=== PATIENT | male | born 1970 | race Caucasian/White ===

== ENCOUNTER 2016-09-25 10:52 | Emergency (ER) | payer OTHER ==
[2016-09-25 10:58] VITALS: BP 127/71; PULSE 59; RESP 18; TEMP 97.1
[2016-09-25] MEDS ORDERED: valACYclovir 500 MG TAB PO STA (11:08)
[2016-09-25] MEDS ORDERED: predniSONE 20 MG TAB PO STA (11:08)
--- NOTE | 2016-09-25 11:11 | ED ---
General Adult HPI - General Chief complaint: Neuro Symptoms/Deficit Stated complaint: face drooping Time Seen by Provider: 09/25/16 11:00 Source: patient, family, RN notes reviewed, old records reviewed Mode of arrival: wheelchair Limitations: physical limitation - History of Present Illness Initial comments: This is a 45-year-old male here for evaluation of right-sided facial droop. Right-sided facial numbness. Patient states symptoms started 2 days ago, have progressively worsened mildly. Patient did also cannot move his forehead. Denies any vision changes, denies any other neurological deficit. No history of heart disease, no history of stroke. No high blood pressure no high questionable no diabetes. No other travel history or sick contacts, no ear pain , no fevers - Related Data Home Medications Medication Instructions Recorded Confirmed Cyclobenzaprine [Flexeril] 10 mg PO TID PRN 12/17/13 09/28/14 Gabapentin [Neurontin] 300 mg PO TID 12/17/13 09/28/14 oxyCODONE-APAP 5-325MG [Percocet 10 mg PO Q6H PRN 12/17/13 09/28/14 5-325 mg] Previous Rx's Medication Instructions Recorded predniSONE 50 mg PO DAILY #5 tab 09/25/16 valACYclovir HCL [Valtrex] 1,000 mg PO Q8HR #21 tab 09/25/16 Allergies Allergy/AdvReac Type Severity Reaction Status Date / Time dark chocolate Allergy Nausea & Uncoded 09/28/14 09:04 Vomiting & Diarrhea Review of Systems ROS Statement: Those systems with pertinent positive or pertinent negative responses have been documented in the HPI. ROS Other: All systems not noted in ROS Statement are negative. Past Medical History Past Medical History: Asthma, Musculoskeletal Disorder Additional Past Medical History / Comment(s): ASTHMA CHILD, SEASONAL ALLERGIES, MIGRAINES History of Any Multi-Drug Resistant Organisms: None Reported Past Surgical History: Back Surgery Additional Past Surgical History / Comment(s): BACK SX X2 AND ALSO NECK FUSION Past Anesthesia/Blood Transfusion Reactions: No Reported Reaction Past Psychological History: No Psychological Hx Reported Smoking Status: Current every day smoker Past Alcohol Use History: None Reported Past Drug Use History: None Reported General Exam - General Exam Comments Initial Comments: Right-sided facial droop, inability to close right eye, inability to move right side of forehead Limitations: physical limitation General appearance: alert, in no apparent distress Head exam: Present: atraumatic, normocephalic, normal inspection Eye exam: Present: normal appearance, PERRL, EOMI. Absent: scleral icterus, conjunctival injection, periorbital swelling ENT exam: Present: normal exam, mucous membranes moist Neck exam: Present: normal inspection. Absent: tenderness, meningismus, lymphadenopathy Respiratory exam: Present: normal lung sounds bilaterally. Absent: respiratory distress, wheezes, rales, rhonchi, stridor Cardiovascular Exam: Present: regular rate, normal rhythm, normal heart sounds. Absent: systolic murmur, diastolic murmur, rubs, gallop, clicks GI/Abdominal exam: Present: soft, normal bowel sounds. Absent: distended, tenderness, guarding, rebound, rigid Extremities exam: Present: normal inspection, full ROM, normal capillary refill. Absent: tenderness, pedal edema, joint swelling, calf tenderness Back exam: Present: normal inspection Neurological exam: Present: alert, oriented X3, CN II-XII intact Psychiatric exam: Present: normal affect, normal mood Skin exam: Present: warm, dry, intact, normal color. Absent: rash Course Vital Signs 09/25/16 10:53 Temperature 97.1 F L Pulse Rate 59 L Respiratory 18 Rate Blood Pressure 127/71 O2 Sat by Pulse 97 Oximetry - Reevaluation(s) Reevaluation #1: 09/25/16 11:10 Patient explained the symptoms and of bells palsy, questions answered 09/25/16 11:11 Medical Decision Making - Medical Decision Making 42 female year for evaluation of facial droop. Facial droop does include forehead, patient unable to move for about unable close eye. 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 Patient will be discharged home on appropriate therapy Disposition Clinical Impression: Lane's palsy Disposition: HOME SELF-CARE Condition: Good Instructions: Lane Palsy (ED) Prescriptions: predniSONE 50 mg PO DAILY #5 tab valACYclovir HCL [Valtrex] 1,000 mg PO Q8HR #21 tab Referrals: Josef Beckett MD [Primary Care Provider] - 1-2 days
[2016-09-25] MEDS ORDERED: valACYclovir HCL 1,000 MG TABLET PO STA (11:12)
== END 2016-09-25 11:24 | disposition home or self-care (01) ==
LOC: EC 10:52
DX: G51.0 Bell's palsy (principal); F17.200 Nicotine dependence, unspecified, uncomplicated; Z79.899 Other long term (current) drug therapy; Z91.018 Allergy to other foods
CPT/HCPCS: 99284; J7512

== ENCOUNTER → 2017-01-08 | Outpatient (CLI) | payer OTHER ==
--- NOTE | 2017-01-08 17:39 | MR ---
EXAMINATION TYPE: MR lumbar spine wo/w con DATE OF EXAM: 01/08/2017 COMPARISON: 07/01/2014 Contrast: 7 mL Gadavist HISTORY: Low back pain for several months, previous back surgery TECHNIQUE: T1 and T2 axial and sagittal, postcontrast T1 sagittal and axial images of the lumbar spi ne are submitted. FINDINGS: There is no abnormal signal seen within the visualized spinal cord or paraspinal soft tissu es. At L1-2 there is no evidence of disc herniation, canal stenosis, or foraminal encroachment. No signif icant degenerative disc disease. At L2-3 there is no evidence of disc herniation, canal stenosis, or foraminal encroachment. No signif icant degenerative disc disease. At L3-4 there is mild disc desiccation with moderate hypertrophic change of the facets and ligamentum flavum. Mild bilateral foraminal encroachment. Circumferential disc bulging but no canal stenosis. S mall synovial cyst external to the spinal canal related to the left facet joint posteriorly. At L4-5 there is postsurgical change. Enhancement noted posteriorly likely related to postsurgical sc ar tissue. No canal stenosis or disc herniation. Neural foramina remain patent At L5-S1 there is postsurgical changes but no evidence of disc herniation or canal stenosis. No neeraj inal encroachment. Minimal enhancement of the disc space and this likely is postsurgical rather then related discitis. Finding is stable. Correlate clinically. Suggestion of mild left-sided nerve root e nhancement IMPRESSION: 1. Stable postsurgical changes from L4 through S1 level are seen, satisfactory alignment with no evid ence of disc herniation or canal stenosis. 2. There does persist some degree of enhancement of the left nerve root at L4-L5 correlate for neurit is. 3. Mild circumferential disc bulging L3-L4 with hypertrophic change of the left and mild bilateral fo raminal encroachment but no canal stenosis
== END | disposition home or self-care (01) ==
LOC: RADMRIMAIN 16:04
PROVIDERS: ATTEND Family Medicine
DX: M51.16 Intervertebral disc disorders with radiculopathy, lumbar region (principal); M53.86 Other specified dorsopathies, lumbar region; Z98.890 Other specified postprocedural states
CPT/HCPCS: 72158

== ENCOUNTER → 2017-05-24 | Outpatient (CLI) | payer OTHER ==
[2017-05-24 13:39] VITALS: BP 122/66; PULSE 64; RESP 18
--- NOTE | 2017-05-24 14:18 | P.PN ---
Subjective Progress Note Date: 05/24/17 This is a follow-up visit for this 46 years old male with a chronic history of severe low back pain, he should have lumbar fusion surgery done several years ago and a fusion done at L4 5 levels and L5-S1 , patient currently complaining of severe axial back pain localized above the fusion area and he had MRI done that showed patient had a L3-4 facet hypertrophy, and with done diagnostic medial branch block lumbar area at L2-3/L3-4 levels , and he is here to discuss the results of the medial branch block, patient reported that his pain decreased significantly after the medial branch block his pain was 9/10 before the block and he was not able to move or do any activity of daily livings, and his pain decreased to 4/10 after the block, his ability to do to do activity of daily livings improved significantly, he denies any motor or sensory deficits he denies any fever or night sweats and there is no change in the bowel movement or urination Objective - Vital Signs Vital signs: Vital Signs Temp Pulse 64 05/24/17 13:30 Resp 18 05/24/17 13:30 BP 122/66 05/24/17 13:30 Pulse Ox 96 05/24/17 13:30 Intake & Output 05/23/17 05/24/17 05/24/17 18:59 06:59 18:59 Weight 52.617 kg - Exam Physical Examinations : 1-Constitutiona : Cooperative , not in acute distress . 2-HEENT : nech ; supple , no Lymphadenopathy , normal thyroid size . eyes : no ptosis , no icterus, no photophobia . ENT : normal of hearing , normal oropharynx , no Thrush . 3- Respiratory : Chest clear to auscultations Bilaterally , no wheezing , no Rhonchi . 4- Cardiovascular : regular rate and rhythem , S1 , S2 , no S3 , no S4. 5- Gastrointestinal : abdomen soft no tenderness , bowel sounds positive all four quadrents , no organomegally . 6- Genitourinary : Defferred . 7- neurologic : Cranial nerve II to XII intact , no focal neurological deffecit . 8-psychatric : alert , oriented X 3 , appropriate affect , intact judgment and insight . 9-Lymphatic : no Lymphadenopathy . 10- musculoskeltal : , Lumber spine = normal moter stegnth lower extremities ,thigh and legs .5/5 deep tendon reflexes : normal Knee Jerk , normal ankle Jerk . lumber facet Loading Test positive Assessment and Plan Plan: Assessment and plan= chronic low back pain secondary , lumbar spondylosis with lumbar facet arthropathy , Patient had one diagnostic medial branch block lumbar area done in 05/01/2017 ,at L2-3/L3 4 levels ,and he had more than 50% decrease in his low back pain , And the procedure helped to improve his activity of daily livings ,for this reason patient would be good candidate, to have a repeat diagnostic medial branch block procedure risk and benefits and alternatives discussed with the patient and he proceeded Time with Patient: Less than 30
== END | disposition home or self-care (01) ==
LOC: PNWHC3 13:03
PROVIDERS: ATTEND Specialist
DX: G89.29 Other chronic pain (principal); M54.5 Low back pain; M47.816 Spondylosis without myelopathy or radiculopathy, lumbar region; M46.86 Other specified inflammatory spondylopathies, lumbar region; Z98.1 Arthrodesis status
CPT/HCPCS: 99211

== ENCOUNTER 2017-05-31 09:40 | Day surgery (SDC) | payer OTHER ==
[2017-05-30 08:31] VITALS: BMI 18.2
[~2017-05-31 09:40] MED LIST: LACTATED RINGERS 1,000 ML IV ONE
[2017-05-31 10:49] VITALS: RESP 16; TEMP 98.9
[2017-05-31] MEDS ORDERED: LIDOCAINE 1% 20 ML VIAL (10MG/ML) FOR IV START INTRADERMA ONE (10:49)
--- NOTE | 2017-05-31 11:16 | P.PCN ---
Date of Procedure: 05/31/17 Procedure(s) Performed: PREOPERATIVE DIAGNOSIS : 1- Lumbar spondylosis with Facet Arthropathy without myelopathy . 2- Lumber degenerative disc disease POSTOPERATIVE DIAGNOSIS: 1- Lumbar spondylosis with Facet Arthropathy without myelopathy . 2- Lumber degenerative disc disease PROCEDURE: Diagnostic bilateral L2-3 ,L3 -4 , medial branch block under fluoroscopy ANESTHESIA: Local with 1% lidocaine 4 ml , moderate sedation with intravenous Versed 2 mg and Fentanyl 100 mcg. EBL: Minimal COMPLICATION: None. IV FLUIDS: 100 mL of normal saline. PROCEDURE INDICATION: Chronic low back pain secondary to Facet arthropathy unresponsive to conservative treatment. PROCEDURE DESCRIPTION: the patient was seen and identified in the preop holding area , risks and benefits and possible complications of the procedure and alternative were discussed with the patient, and the patient agreed to proceed with the procedure and signed the consent IV was started and vital signs monitored during the procedure and fluoroscopy was used to maximize the benefit and accuracy of the needle placement, and sedation was given to decrease patient anxiety, patient was taken to the procedure room and placed in prone position vital signs monitored in the back prepped with chlorhexidine X3 then under strict sterile technique using a right oblique fluoroscopy ,the junction of the transverse process and the superior articulating process of the right L2-3 , L3- 4 vertebra which corresponding to the fluoroscopy image of the eye of the Jonathan dog on the block side for the medial branches and subsequently , after local infiltration of skin and subcu tissuies with lidocaine 1% one mL at each level ,then 22-gauge Quincke-type needles , 2 needle was used , each one of them placed at the junction of the base of the transverse process and the superior articular process at the appropriate level, and the needle was advanced until the periosteum contacted, needle placement confirmed with AP oblique and lateral view and after appropriate needle placement confirmed, and after negative aspiration for heme and CSF and there was no paresthesia 1 mL of Marcaine 0.5% mixed with 20 mg Kenalog , then half mL injected at each level after negative aspiration the needle subsequently removed and the same procedure repeated for the left side at left side at L2-3 , L3-4, levels. At the end of the procedure and the needles removed and a bandage applied after the skin was cleaned the cleaning solution patient taken to recovery room in stable condition and monitors in the recovery room for 20-30 minutes and discharged home in stable condition after discharge criteria met and patient will follow up with the pain clinic in 2-4 weeks
[2017-05-31] MEDS ORDERED: IV FLUID CONTINUATION 1,000 ML IV ONE (11:21)
--- NOTE | 2017-05-31 11:26 | FL ---
EXAMINATION TYPE: FL guided pain mgmt statistic DATE OF EXAM: 05/31/2017 HISTORY: Flouroscopy time 6 seconds of fluoroscopy provided. IMPRESSION: 1. Fluoroscopy time.
[2017-05-31 11:56] VITALS: BP 118/70; PULSE 60
== END 2017-05-31 12:04 | disposition home or self-care (01) ==
LOC: ORPAIN 09:40
PROVIDERS: ATTEND Specialist
DX: G89.29 Other chronic pain (principal); M47.816 Spondylosis without myelopathy or radiculopathy, lumbar region; M51.36 Other intervertebral disc degeneration, lumbar region; J45.909 Unspecified asthma, uncomplicated; Z91.018 Allergy to other foods; Z91.09 Other allergy status, other than to drugs and biological substances
CPT/HCPCS: 64493; 64494; J2250; J3301; J3010; 99152

== ENCOUNTER → 2017-06-26 | Outpatient (CLI) | payer OTHER ==
[2017-06-26 11:40] VITALS: BP 121/76; PULSE 81; RESP 16
--- NOTE | 2017-06-26 11:49 | P.PN ---
Progress Note - Text Progress Note Date: 06/26/17 Patient returns for followup for chronic back pain with some radiation to LLE. Patient recently underwent LMBB x 2, which provided some relief for approximately 1 week's interval apiece, > 50% pain relief from each. Patient continues on Percocet medications for pain from PCP with good relief. Patient denies adverse drug effects from medications. Today, pt denies new-onset weakness, bowel/bladder incontinence, or any other signs or symptoms of cauda equina syndrome. There are no signs of acute intoxication, and no indications of medication diversion or overuse. In addition to above, 13-point review of systems is also negative for chest pain , shortness of breath, changes in vision, changes in hearing, new onset weakness , abdominal pain, diarrhea, extreme fatigue, malaise, fever, skin changes, homicidal or suicidal ideation, or bowel or bladder incontinence. Vital Signs: Reviewed in EMR Gen: WDWN, AAOx3, NAD HEENT: NCAT, EOMI, hearing grossly normal Pulm: resp unlabored Abd: soft, NT, ND Neck: supple, trachea midline ROM in flexion lumbar spine: reduced ROM in extension lumbar spine: reduced Lumbar paravertebral tenderness: + Facet loading: + bilateral, L > R SI joint tenderness: neg Marek's test: + L side Straight leg raise: neg Neuro: CN II-XII grossly intact, muscle strength lower extremities PRESERVED Imaging: Reviewed in EMR Assessment: 1. lumbar spondylosis without myelopathy 2. lumbar PLPS 3. chronic pain syndrome Plan: 1. Explanation: Opioid and psychological risk scores were reviewed. Diagnoses , prognoses, and multiple treatment options including but not limited to physical therapy, interventional therapies, adjuvant medical therapies, narcotic medication therapies, and surgery were discussed with the patient and all questions were answered to the patient's satisfaction. 2. Opioid agreement: no opioids prescribed today 3. Counseling: The patient was counseled extensively on SMOKING CESSATION, BODY MASS INDEX, EXERCISE. Specifically, the patient was instructed regarding the importance of smoking cessation, weight control, and exercise in the context of both chronic pain and overall health. 4. Procedures: left lumbar RFA L2-L3 and L3-L4 levels 5. Consultations: None 6. Investigations: None 7. Medications: none prescribed 8. Disposition: f/u for PQRS measures: 1-Patient's medications are documented in the chart. 2-Tobacco use is positive, counseling given 3-Patient has not had a pneumococcal vaccine. 4-Advanced care planning discussed, patient unable to give. 5-Opioid contract NOT signed with the patient. 6-Pain positive, follow-up visit or procedure scheduled 7-Patient's blood pressure measured and documented, and patient will follow up with the primary care due to hypertension. 8-Patient's weight was measured, and body mass index ABOVE the normal limits, and counseling was done. Patient instructed to follow up with PCP. 9-Patient WAS NOT identified as an unhealthy alcohol user.
== END | disposition home or self-care (01) ==
LOC: PNWHC3 11:19
PROVIDERS: ATTEND Anesthesiology
DX: G89.4 Chronic pain syndrome (principal); M47.896 Other spondylosis, lumbar region; G97.1 Other reaction to spinal and lumbar puncture; Z79.891 Long term (current) use of opiate analgesic
CPT/HCPCS: 99211

== ENCOUNTER 2017-07-31 09:18 | Day surgery (SDC) | payer OTHER ==
[2017-07-27 09:33] VITALS: BMI 17.2
[~2017-07-31 09:18] MED LIST changes: -LACTATED RINGERS 1,000 ML IV ONE; +LACTATED RINGERS 1,000 ML IV SCH
[2017-07-31 09:54] VITALS: RESP 16; TEMP 98.7
[2017-07-31] MEDS ORDERED: LIDOCAINE 1% 20 ML VIAL (10MG/ML) FOR IV START INTRADERMA ONE (09:56)
--- NOTE | 2017-07-31 11:20 | P.PCN ---
Date of Procedure: 07/31/17 Preoperative Diagnosis: Lumbar spondylosis without myelopathy Back surgery syndrome Postoperative Diagnosis: Same as above Procedure(s) Performed: Left lumbar medial branch radio frequency ablation of the medial branches L1, L2 , L3, and the dorsal ramus of L5 on the left side under fluoroscopic guidance. Anesthesia: MAC (Local with IV conscious sedation with Versed and fentanyl) Surgeon: Ling Cobos Pathology: none sent Condition: stable Disposition: PACU Description of Procedure: The patient was seen in preoperative holding area consent was obtained then he was brought into the procedure 1 placed in prone position. The patient had back surgery previously with lumbar fusion. The medial branches targeted were lumbar medial branch #L1, 2, 3 and the dorsal ramus of L5. The medial branch L4 was not done due to the patient's fusion at that level. The target points were at the eye of the Jonathan dog of the lumbar vertebra #2, 3, 4, and at the superior medial aspect of the sacral ala on the left side. I used 18-gauge 100 mm in length with 10 mm curved active tip radiofrequency ablation needles for this procedure. I placed the active tips as parallel as possible to the medial branches tracks by going in a superior medial direction under fluoroscopic guidance. AP oblique and lateral views of fluoroscopy were used to verify needle tip position. Then motor stimulation showed only local twitches of these needles with no radiation of twitching to the left lower extremity. After that I prepared a solution of 3 MLS Marcaine 0.5% +40 mg of Kenalog and 1 mL of the solution was injected in each needle.Ablation was started for 90 seconds at 80C and was repeated one more time after turning the bevels 180 and withdrawn the needles 1 or 2 mm. Patient tolerated procedure well.
[2017-07-31] MEDS ORDERED: IV FLUID CONTINUATION 1,000 ML IV ONE (11:21)
[2017-07-31 11:26] VITALS: BP 111/73
[2017-07-31 11:44] VITALS: PULSE 50
--- NOTE | 2017-07-31 12:49 | FL ---
Fluoroscopy HISTORY: Pain 17 seconds fluoroscopy time supplied to the referring clinician. 2 intraoperative C-arm images docum ent the procedure. See dictated report from anesthesia.
== END 2017-07-31 11:58 | disposition home or self-care (01) ==
LOC: ORPAIN 09:18
PROVIDERS: ATTEND Anesthesiology
DX: M47.816 Spondylosis without myelopathy or radiculopathy, lumbar region (principal); M96.1 Postlaminectomy syndrome, not elsewhere classified; K85.90 Acute pancreatitis without necrosis or infection, unspecified; Z91.018 Allergy to other foods
CPT/HCPCS: 64635; 64636 ×2; J2250; J3301; J3010; 99152; 99153

== ENCOUNTER 2017-08-28 09:19 | Day surgery (SDC) | payer OTHER ==
[2017-08-23 08:41] VITALS: BMI 17.2
[2017-08-28 10:04] VITALS: TEMP 98.2
[2017-08-28] MEDS ORDERED: LACTATED RINGERS 1,000 ML IV ONE (10:04)
[2017-08-28] MEDS ORDERED: LIDOCAINE 1% 20 ML VIAL (10MG/ML) FOR IV START INTRADERMA ONE (10:05)
[2017-08-28] MEDS ORDERED: LACTATED RINGERS 1,000 ML IV SCH (10:15)
--- NOTE | 2017-08-28 10:54 | P.PCN ---
Date of Procedure: 08/28/17 Surgeon: Brenden Lanier Pathology: none sent Condition: stable Disposition: PACU Description of Procedure: PREOPERATIVE DIAGNOSIS: Lumbar spondylosis without myelopathy and facet arthropathy POSTOPERATIVE DIAGNOSIS: Lumbar spondylosis without myelopathy and facet arthropathy PROCEDURES: Right Radiofrequency thermocoagulation, L3-L4, L4-L5, and L5-S1 medial branch, with fluoroscopic guidance. ANESTHESIA: 1% lidocaine plain; Conscious sedation with versed/fentanyl EBL: Minimal PROCEDURE INDICATION: The patient with low back pain secondary to lumbar arthropathy who had more than 50% relief of pain with previous diagnostic lumbar medial branch block with bupivacaine. Patient presents for right lumbar RFA today after good relief from left side; no use of blood thinners. PROCEDURE DESCRIPTION / TECHNIQUE: The patient was seen and identified in the preoperative area. Risks, benefits, complications, and alternatives were discussed with the patient (including but not limited to incomplete pain relief , bleeding, infection, nerve damage, and allergies to medications), the patient agreed to proceed with the procedure and signed the consent after all questions were answered. Patient was taken to the OR and time out was completed to verify proper patient , position, laterality of pain, and allergies. Pt was placed in the prone position. IV was started. Vital signs remained stable throughout the procedure. A pillow was placed under the patients chest to decrease lordosis. The lumbosacral area was prepped and draped in the usual sterile fashion. Vital signs were closely monitored during the procedure. Conscious sedation was used during the procedure to decrease patients anxiety. Using AP and then oblique fluoroscopy, the eye of the Jonathan dog corresponding to the connection between the superior and transverse articular processes of right L3, L4, L5 and top of the sacrum were identified, marked, and localized with 1% lidocaine. Subsequently, a 20 gauge, 100-mm radiofrequency cannula with a 10-mm active tip was advanced guided by fluoroscopy to each of the eyes of the Jonathan dog at the levels of all four medial branches. Each site then underwent sensory testing at 50 Hz and 0 to 1 volt and motor testing at 2 Hz and 0 to 3 volt with local stimulation, but no radicular symptoms down the legs. Thereafter all four medial branch sites underwent radiofrequency thermocoagulation at 80 degrees Celsius for 90 seconds after injecting 0.5 ml of PF lidocaine 1%. After thermocoagulation, 1 ml of the block solution containing Kenalog 40 mg and 2 mL of preservative-free normal saline was injected at all four medial branch levels after negative aspiration of CSF and blood and with no paresthesias. Cannulas were retracted while injecting lidocaine 1% until the needles were removed. At the end of the procedure, the skin was cleansed and bandages were applied. COMPLICATIONS: No acute complications. DISPOSITION / PLANS: The patient was placed in a supine position and transferred to the recovery area in a stable condition for observation and was discharged from the recovery room after meeting discharge criteria. Home discharge instructions given to the patient by the staff. The patient was reexamined prior to discharge. The patient will schedule a follow up as needed.
[2017-08-28 10:58] VITALS: RESP 16
[2017-08-28 11:14] VITALS: BP 126/53; PULSE 57
[2017-08-28] MEDS ORDERED: IV FLUID CONTINUATION 1,000 ML IV ONE (11:14)
--- NOTE | 2017-08-29 08:52 | FL ---
Fluoroscopy HISTORY: Pain 16 seconds fluoroscopy time supplied to the referring clinician. 2 intraoperative C-arm images docum ent the procedure. See dictated report from anesthesia.
== END 2017-08-28 11:17 | disposition home or self-care (01) ==
LOC: ORPAIN 09:19
PROVIDERS: ATTEND Anesthesiology
DX: M47.816 Spondylosis without myelopathy or radiculopathy, lumbar region (principal)
CPT/HCPCS: 64635; 64636; J2250; J1100; J3010; 99152

== ENCOUNTER → 2019-02-06 | Outpatient (CLI) | payer OTHER ==
[2019-02-06 13:19] VITALS: BP 139/89; PULSE 57; RESP 18
--- NOTE | 2019-02-06 15:30 | P.PAINPG ---
Subjective Progress Note Date: 02/06/19 Sequelae and is a 48-year-old male who is known to our clinic, he follows up to our clinic after a lumbar RFA in August 2017. He had excellent results with the RFA for about 7 months, and the pain is getting worse. Note he has spinal fusion with hardware, however the hardware had to be more remote thus he has no hardware in his lumbar spine. He complains of multiple painful areas including his low back steps and pain reading down the spine, however his most painful area is a low back. He is interested in getting a repeat RFA because he had such tremendous pain relief greater than 80% with the previous RFA.. Objective - Vital Signs Vital signs: Vital Signs Temp Pulse 57 L 02/06/19 13:09 Resp 18 02/06/19 13:09 BP 139/89 02/06/19 13:09 Pulse Ox 96 02/06/19 13:09 Intake & Output 02/05/19 02/06/19 02/06/19 18:59 06:59 18:59 Weight 53.524 kg - Exam Vital Signs: Reviewed in EMR GENERAL: Well appearing, very thin in no acute distress, PSYCH: Mood and affect is appropriate. Awake, alert, and oriented SKIN: Skin color, texture, turgor normal, no rashes or lesions HEENT: Normocephalic, atraumatic. EOM intact CV: No pedal edema RESP: Respirations are unlabored, no audible wheezing GI: Abdomen non-distended MUSCULOSKELETAL: Bilateral upper and lower extremity strength is normal and symmetric. No atrophy or tone abnormalities are noted. Lumbar spine: Limited to pain to palpation over the lumbar spine and paraspinous muscles. Positive for pain with facet loading and back extension/rotation. Buttocks: Positive to pain to palpation over the PSIS, Darnell test is negative bilaterally Extremities: Peripheral joint ROM is full and pain free without obvious instability or laxity in all four extremities. No edema or skin discolorations noted. Gait: Gait is anantalgic NEUR: No loss of sensation is noted. Cranial nerves are grossly intact. Assessment and Plan Assessment: Assessment: 1. Lumbar spondylosis 2. Previous spinal fusion, hardware explanted 3. Likely SI joint dysfunction 4. Myofascial pain Plan: 1. Explanation: I spoke to him about a therapies, especially in the light of multiple painful areas. However he would like to proceed with a lumbar RFA because he has had such good relief with the previous one 2. Opioid agreement: None 3. Counseling: He was counseled on stay active 4. Procedures: Lumbar RFA starting with the left side, medial branch of L3-L4 and dorsal rami of 5. However given the previous lumbar fusion if there are issues may go up in the level. Furthermore he appears to have a trigger point in the rhomboid area thus we will also do a trigger point injection. 5. Consultations: None 6. Investigations: MRI reviewed 7. Medications: Encouraged patient to have discussions with primary care physician 8. Disposition: For his left-sided a lumbar RFA followed by his right-sided l umbar RFA , PQRS Measure Charge Sheet Measure #226: Tobacco Use: Screen & Cessation Intervention: Pt screened for tobacco use AND intervention given Measure #111: Pneumonia Vaccination: Pneumococcal vaccine NOT administered or previously given Measure #47: Advance Care Plan: Advance care planning discussed & documented, pt chose/unable to give Measure #131: Pain Assessment & Follow-up: Pain positive & plan documented, Follow-up scheduled PQRS Narrative: Smoking Status Current every day smoker Blood Pressure 139/89 Pain Intensity [Sacrum] 10 Scale Used Numeric (1 - 10) Hx Alcohol Use (MH) No Home Medications: Ambulatory Orders Baclofen [Lioresal] 20 mg PO TID PRN 09/25/16 oxyCODONE-APAP 10-325MG [Percocet 10-325 mg] 1 tab PO QID PRN 04/27/17 Ibuprofen [Motrin] 800 mg PO DAILY PRN 05/31/17 Cannabidiol (Cbd) Extract [Epidiolex] 1 dose PO DIRECTED PRN 02/05/19 Controlled Substance Measures - Controlled Substance Measures Is patient prescribed a controlled substance at discharge?: No
== END | disposition home or self-care (01) ==
LOC: PNWHC3 12:54
PROVIDERS: ATTEND Student in an Organized Health Care Education/Training Program
DX: M47.816 Spondylosis without myelopathy or radiculopathy, lumbar region (principal); M79.18 Myalgia, other site; F17.200 Nicotine dependence, unspecified, uncomplicated; Z98.1 Arthrodesis status; Z98.890 Other specified postprocedural states
CPT/HCPCS: 99211

== ENCOUNTER 2019-02-25 09:01 | Day surgery (SDC) | payer OTHER ==
[2019-02-21 11:23] VITALS: BMI 17.4
[2019-02-25 09:21] VITALS: RESP 16; TEMP 96.8
[2019-02-25] MEDS ORDERED: LIDOCAINE 1% 20 ML VIAL (10MG/ML) FOR IV START INTRADERMA ONE (09:22)
[2019-02-25] MEDS ORDERED: IV FLUID CONTINUATION 550 ML IV ONE (10:19)
[2019-02-25 10:33] VITALS: BP 136/87; PULSE 54
--- NOTE | 2019-02-25 10:54 | FL ---
EXAMINATION TYPE: FL guided pain mgmt statistic DATE OF EXAM: 02/25/2019 HISTORY: Flouroscopy time 9 seconds of fluoroscopy provided. IMPRESSION: 1. Fluoroscopy time.
--- NOTE | 2019-02-25 14:03 | P.PCN ---
Date of Procedure: 02/25/19 Procedure(s) Performed: PREOPERATIVE DIAGNOSIS: Lumbar Spondylosis, myofascial pain syndrome of right thoracic paraspinal POSTOPERATIVE DIAGNOSIS: Same PROCEDURES: Radiofrequency ablation of the L1, L2, L3 medial branches with fluoroscopic guidance on the left side for facets L2 -3 and L3-4, trigger point injection at right thoracic paraspinal muscle SURGEON: Digna Boss MD. ANESTHESIA: Lidocaine 1% 5 mL, Moderate sedation with intravenous Versed and fentanyl, sedation time 24 minutes EBL: Minimal Fluoroscopy was used for the procedure and images were saved in the radiology portion of the chart. PROCEDURE INDICATION: The patient with low back pain secondary to lumbar facet arthropathy who had more than 50% relief of pain with previous lumbar radiofrequency ablation PROCEDURE DESCRIPTION / TECHNIQUE: The patient was seen and identified in the preoperative area. Risks, benefits, complications, including but not limited to risk of infection ,bleeding , allergic reactions to the medications and incomplete pain relief , and alternatives were discussed with the patient, the patient agreed to proceed with the procedure and signed the consent. IV was started. The operative site was marked. Patient was taken to the OR and time out was completed. The patient was placed in the prone position on the procedure table. The lumbar area was prepped and draped in the usual sterile fashion. . Vital signs were closely monitored during the procedure .IV sedation was used during the procedure to decrease patient's anxiety. Using AP and then oblique fluoroscopy, the "eye of the Jonathan dog" at L2, L3, L4 corresponding to the connection between the superior and transverse articular pr ocesses of the L2, L3, L4 vertebrae were identified, marked, and localized with 1% lidocaine. Subsequently, an 18 guage hurt MM radiofrequency cannula with a 10-mm active tip was advanced guided by fluoroscopy to the identified target at each site. Needle positioning was confirmed on AP, oblique and lateral fluoroscopy. Motor testing at 2.5 Hz was done with paraspinal muscle stimulation only, and no radicular symptoms down the legs. Then 1 mL of 4% lidocaine was injected in each site. Radiofrequency thermocoagulation at 80 degrees celsius for 90 seconds was then performed. [place] were removed. Sterile dressings were applied. Then my attention was turned to the trigger point injection. The patient's back was sterilely prepped in the usual fashion with an alcohol swab. Single trigger was identified via palpation of the indicated muscles (right thoracic paraspinal) and marked sterilely. The trigger point was injected with a 25-gauge half inch needle, with 3 mL of solution consisting of ropivacaine 0.5%. COMPLICATIONS: No acute complications. Comments: Of note, the patient had a prior fusion from L4 to S1, and the hardware has been removed since his prior procedure. In the future, he may benefit from lower lumbar medial branch blocks. DISPOSITION / PLANS: The patient was placed in a supine position and transferred to the recovery area in a stable condition for observation and was discharged from the recovery room after meeting discharge criteria. Home discharge instructions given to the patient by the staff. The patient will follow up in clinic in 4 weeks.
== END 2019-02-25 10:46 | disposition home or self-care (01) ==
LOC: ORPAIN 09:01
PROVIDERS: ATTEND Anesthesiology
DX: M47.816 Spondylosis without myelopathy or radiculopathy, lumbar region (principal); M79.18 Myalgia, other site; F17.200 Nicotine dependence, unspecified, uncomplicated; Z98.1 Arthrodesis status
CPT/HCPCS: 20552; 64635; 64636; J2250; J3010; 99152; 99153

== ENCOUNTER 2019-03-26 09:05 | Day surgery (SDC) | payer OTHER ==
[2019-03-26] MEDS ORDERED: LACTATED RINGERS 1,000 ML IV SCH (09:24)
[2019-03-26 09:32] VITALS: RESP 16; TEMP 97.9
[2019-03-26] MEDS ORDERED: LIDOCAINE 1% 20 ML VIAL (10MG/ML) FOR IV START INTRADERMA ONE (09:40)
[2019-03-26] MEDS ORDERED: LACTATED RINGERS 1,000 ML IV ONE ×2 (10:44)
--- NOTE | 2019-03-26 10:45 | P.PCN ---
Date of Procedure: 03/26/19 Procedure(s) Performed: PREOPERATIVE DIAGNOSIS: Lumbar Spondylosis with lumbar facet arthropathy POSTOPERATIVE DIAGNOSIS: Same as preoperative diagnoses PROCEDURES: Radiofrequency ablation of the L1, L2, L3 medial branches with fluoroscopic guidance on the right side for facets L2 -3 and L3-4, ANESTHESIA: Moderate sedation with intravenous Versed 2 mg and fentanyl 100 g . EBL: Minimal Fluoroscopy was used for the procedure and images were saved in the radiology portion of the chart. PROCEDURE INDICATION: The patient with low back pain secondary to lumbar facet arthropathy who had more than 50% relief of pain with previous lumbar radiofrequency ablation PROCEDURE DESCRIPTION / TECHNIQUE: The patient was seen and identified in the preoperative area. Risks, benefits, complications, including but not limited to risk of infection ,bleeding , allergic reactions to the medications and incomplete pain relief , and alternatives were discussed with the patient, the patient agreed to proceed with the procedure and signed the consent. IV was started. The operative site was marked. Patient was taken to the OR and time out was completed. The patient was placed in the prone position on the procedure table. The lumbar area was prepped and draped in the usual sterile fashion. . Vital signs were closely monitored during the procedure .IV sedation was used during the procedure to decrease patient's anxiety. Using AP and then oblique fluoroscopy, the "eye of the Jonathan dog" at L1 ,L2, L3, corresponding to the connection between the superior and transverse articular processes of the L1 ,L2, L3, vertebrae were identified, marked, and localized with 1% lidocaine. Subsequently, an 18 guage 100 MM radiofrequency cannula with a 10-mm active tip was advanced guided by fluoroscopy to the identified target at each site. Needle positioning was confirmed on AP, oblique and lateral fluoroscopy. Motor testing at 2.5 Hz was done with paraspinal muscle stimulation only, and no radicular symptoms down the legs. Then 1 mL of 1% lidocaine was injected in each site. Radiofrequency thermocoagulation at 80 degrees celsius for 90 seconds was then performed. Bromide were removed. Sterile dressings were applied. Then my attention was turned to the trigger point injection. The patient's back was sterilely prepped in the usual fashion with an alcohol swab. Single trigger was identified via palpation of the indicated muscles (right thoracic paraspinal) and marked sterilely. The trigger point was injected with a 25-gauge half inch needle, with 3 mL of solution consisting of ropivacaine 0.5%. COMPLICATIONS: No acute complications. Comments: Of note, the patient had a prior fusion from L4 -5 , L5-S1and the hardware has been removed since his prior procedure. In the future, he may benefit from lower lumbar medial branch blocks. ( the procedure today was above the level of the fusion ) DISPOSITION / PLANS: The patient was placed in a supine position and transferred to the recovery area in a stable condition for observation and was discharged from the recovery room after meeting discharge criteria. Home discharge instructions given to the patient by the staff. The patient will follow up in clinic in 4 weeks.
[2019-03-26 11:21] VITALS: BP 132/78; PULSE 66
--- NOTE | 2019-03-26 11:22 | FL ---
EXAMINATION TYPE: FL guided pain mgmt statistic DATE OF EXAM: 03/26/2019 HISTORY: Flouroscopy time 33 seconds of fluoroscopy provided. IMPRESSION: 1. Fluoroscopy time.
== END 2019-03-26 11:22 | disposition home or self-care (01) ==
LOC: ORPAIN 09:05
PROVIDERS: ATTEND Specialist
DX: M47.816 Spondylosis without myelopathy or radiculopathy, lumbar region (principal); Z91.048 Other nonmedicinal substance allergy status
CPT/HCPCS: 20552; 64635; 64636; J2250; J1030; J3010; 99152; 99153

== ENCOUNTER → 2019-04-29 | Outpatient (CLI) | payer OTHER ==
[2019-04-29 13:48] VITALS: BP 125/78; PULSE 50; RESP 18
--- NOTE | 2019-04-29 14:33 | P.PAINPG ---
Subjective Progress Note Date: 04/29/19 this is a follow-up visit for this 48 years old male, with a chronic history of severe low back pain, and severe upper back pain, he is diagnosed with lumbar spondylosis and lumbar facet arthropathy, and failed back surgery syndrome and lumbar area ,and he had myofascial pain syndrome upper and thoracic area, recently we have done are free of the medial branch lumbar area L1 , L2 ,L3 , and he reports his low back pain improved significantly, currently is complaining of pain with radiation to the lower extremity up to the toes bilaterally, and some numbness and tingling sensation, and he is complaining of severe abdominal aching pain in the upper and mid back area, he is able to ambulate freely without any difficulty he denies any change in the bowel movement or urination, he denies any fever or night sweats. Objective - Vital Signs Vital signs: Vital Signs Temp Pulse 50 L 04/29/19 13:34 Resp 18 04/29/19 13:34 BP 125/78 04/29/19 13:34 Pulse Ox 96 04/29/19 13:34 Intake & Output 04/28/19 04/29/19 04/29/19 18:59 06:59 18:59 Weight 52.163 kg - Exam Physical Examinations : -Constitutiona : Cooperative , not in acute distress . -HEENT : nech : supple , no Lymphadenopathy , normal thyroid size . : eyes : no ptosis , no icterus, no photophobia . - neurologic : Cranial nerve II to XII intact , no focal neurological deffecit . -psychatric : alert , oriented X 3 , appropriate affect , intact judgment and insight . -Lymphatic : no Lymphadenopathy . - musculoskeltal : thoracic Spine=multiple trigger points in the thoracic paravertebral muscles T4 to T8 bilaterally Lumber spine moter stegnth lower extremities ,thigh and legs 5/5 Right side , 5/5 Left side deep tendon reflexes : normal Knee Jerk , normal ankle Jerk lumber facet Loading Test =positive Rig ht , positive Left Range of motion of the lumbar spine Flexion 30 degrees, extension 10 degrees strait leg raising test = positive at 30 degree Fabere test= positive Right , and positive LT . no tenderness over the Sacroiliac joint . 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 3-myofascial pain syndrome thoracic paravertebral muscles bilaterally. Patient had a good result after the RFA of the medial branch lumbar area, Patient could benefit from caudal epidural steroid injection with lysis of epidural adhesions under fluoroscopy guidance. Patient could benefit from trigger point injections thoracic paravertebral muscles bilaterally. Time with Patient: Less than 30 PQRS Measure Charge Sheet Measure #130: Documentation of Current Meds in Medical Chart: Patient's medications documented in chart Measure #226: Tobacco Use: Screen & Cessation Intervention: Pt screened for tobacco use AND intervention given Measure #111: Pneumonia Vaccination: Pneumococcal vaccine NOT administered or previously given Measure #47: Advance Care Plan: Advance care planning discussed & documented, pt chose/unable to give Measure #412: Opioid Treatment Agreement: No documentation of signed opioid treatment agreement Measure #408: Opioid Therapy Follow-up Evaluation: Patient had NO f/u eval minimum every 3 months during opioid therapy Measure #317: Preventitive Care & Scrn High Bld Press & F/U: Normal blood pressure, f/u not required Measure #128: Body Mass Index (BMI) Screening & Follow-up: BMI documented BELOW normal parameters - f/u documented Measure #131: Pain Assessment & Follow-up: Pain positive & plan documented, Follow-up scheduled Measure #431: Unhealthy Alcohol Use Preventative Care & Scrn: Patient not identified as an unhealthy alcohol user PQRS Narrative: Smoking Status Current every day smoker Blood Pressure 125/78 Pain Intensity [Left Posterior 6 Hip] Scale Used Numeric (1 - 10) Hx Alcohol Use (MH) No Home Medications: Ambulatory Orders Baclofen [Lioresal] 20 mg PO TID PRN 09/25/16 oxyCODONE-APAP 10-325MG [Percocet 10-325 mg] 1 tab PO QID PRN 04/27/17 Ibuprofen [Motrin] 800 mg PO DAILY PRN 05/31/17 Cannabidiol (Cbd) Extract [Epidiolex] 1 dose PO DIRECTED PRN 02/05/19 Controlled Substance Measures - Controlled Substance Measures Is patient prescribed a controlled substance at discharge?: No
== END | disposition home or self-care (01) ==
LOC: PNWHC3 12:56
PROVIDERS: ATTEND Specialist
DX: M47.816 Spondylosis without myelopathy or radiculopathy, lumbar region (principal); M46.96 Unspecified inflammatory spondylopathy, lumbar region; M96.1 Postlaminectomy syndrome, not elsewhere classified; M79.18 Myalgia, other site; Z98.890 Other specified postprocedural states; F17.200 Nicotine dependence, unspecified, uncomplicated; Z79.891 Long term (current) use of opiate analgesic; Z79.1 Long term (current) use of non-steroidal anti-inflammatories (NSAID); Z79.899 Other long term (current) drug therapy
CPT/HCPCS: 99211

== ENCOUNTER 2019-07-23 07:07 | Day surgery (SDC) | payer OTHER ==
[2019-07-23 07:32] VITALS: RESP 16; TEMP 98.5
[2019-07-23] MEDS ORDERED: LACTATED RINGERS 1,000 ML IV SCH (07:35)
--- NOTE | 2019-07-23 07:51 | P.GSHP ---
History of Present Illness H&P Date: 07/23/19 This is 48 years old male, with a chronic history of severe low back pain, and severe upper back pain, he is diagnosed with lumbar spondylosis and lumbar facet arthropathy, and failed back surgery syndrome and lumbar area ,and he had myofascial pain syndrome , patient here today to have,,caudal epidural steroid injection with lysis of epidural adhesions under fluoroscopy guidance ,and trigger point injections. Past Medical History Past Medical History: Asthma, Osteoarthritis (OA) Additional Past Medical History / Comment(s): ASTHMA CHILD, SEASONAL ALLERGIES, ringing in ears, DDD, and bulging disc, Pancreatitis (2008), occ h eart skips a beat, History of Any Multi-Drug Resistant Organisms: None Reported Past Surgical History: Back Surgery Additional Past Surgical History / Comment(s): BACK SX X2 , NECK FUSION, pain clinic procedures Past Anesthesia/Blood Transfusion Reactions: Previous Problems w/ Anesthesia Additional Past Anesthesia/Blood Transfusion Reaction / Comment(s): "attempted to get up off the table during one of my facet procedures", "high tolerance to anesthesia" Smoking Status: Current every day smoker - Past Family History Mother Family Medical History: Deep Vein Thrombosis (DVT), Pulmonary Embolus Father Family Medical History: Cancer Additional Family Medical History / Comment(s): prostate ca, Medications and Allergies Home Medications Medication Instructions Recorded Confirmed Type Baclofen [Lioresal] 20 mg PO TID PRN 09/25/16 07/23/19 History oxyCODONE-APAP 10-325MG [Percocet 1 tab PO QID PRN 04/27/17 07/23/19 History 10-325 mg] Ibuprofen [Motrin] 800 mg PO DAILY PRN 05/31/17 07/23/19 History Cannabidiol (Cbd) Extract 1 dose PO DIRECTED PRN 02/05/19 07/23/19 History [Epidiolex] Allergies Allergy/AdvReac Type Severity Reaction Status Date / Time DEER HAIR Allergy Severe Anaphylaxis Uncoded 07/23/19 07:20 dark chocolate Allergy Nausea & Uncoded 07/23/19 07:20 Vomiting & Diarrhea Surgical - Exam Vital Signs Temp Pulse Resp BP Pulse Ox 98.5 F 59 L 16 163/90 96 07/23/19 07:20 07/23/19 07:20 07/23/19 07:20 07/23/19 07:20 07/23/19 07:20 -Constitutiona : Cooperative , not in acute distress . -HEENT : nech : supple , no Lymphadenopathy , normal thyroid size . : eyes : no ptosis , no icterus, no photophobia . - neurologic : Cranial nerve II to XII intact , no focal neurological deffecit . -psychatric : alert , oriented X 3 , appropriate affect , intact judgment and insight . -Lymphatic : no Lymphadenopathy . - musculoskeltal : thoracic Spine=multiple trigger points in the thoracic paravertebral muscles T4 to T8 bilaterally Lumber spine moter stegnth lower extremities ,thigh and legs 5/5 Right side , 5/5 Left side deep tendon reflexes : normal Knee Jerk , normal ankle Jerk lumber facet Loading Test =positive Right , positive Left Range of motion of the lumbar spine Flexion 30 degrees, extension 10 degrees strait leg raising test = positive at 30 degree Fabere test= positive Right , and positive LT . no tenderness over the Sacroiliac joint . 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 3-myofascial pain syndrome thoracic paravertebral muscles bilaterally. Patient had a good result after the RFA of the medial branch lumbar area, Patient could benefit from caudal epidural steroid injection with lysis of epidural adhesions under fluoroscopy guidance. Patient could benefit from trigger point injections thoracic paravertebral muscles bilaterally. Time with Patient: Less than 30
[2019-07-23] MEDS ORDERED: ROPIVACAINE 5MG/ML 20ML VIAL ONE (08:12)
[2019-07-23] MEDS ORDERED: methylPREDNISolone ACETATE 40 MG/ML 1 ML VIAL ONE (08:12)
[2019-07-23] MEDS ORDERED: MIDAZOLAM 2 MG/2 ML VIAL ONE (08:12)
[2019-07-23] MEDS ORDERED: IOPAMIDOL M200 10 ML VIAL ONE (08:12)
[2019-07-23] MEDS ORDERED: SODIUM CHLORIDE 0.9% (PF) 10 ML VIAL ONE (08:12)
[2019-07-23] MEDS ORDERED: fentaNYL (PF) 50 MCG/ML 2 ML AMP ONE (08:12)
[2019-07-23] MEDS ORDERED: LACTATED RINGERS 1,000 ML IV ONE (08:35)
--- NOTE | 2019-07-23 08:35 | P.PCN ---
Date of Procedure: 07/23/19 Procedure(s) Performed: PREOPERATIVE DIAGNOSIS: 1-Lumbar post laminectomy syndrome. 2-myofascial pain syndrome thoracic paraspinal muscles. 3-lumbar spondylosis with lumbar facet arthropathy without myelopathy POSTOPERATIVE DIAGNOSIS:same as preop diagnosis . PROCEDURE: 1. Caudal epidural steroid injection under fluoroscopic guidance. (Fluoroscopy images available in the radiology department ) 2. Caudal epidurogram. 3.trigger point injections thoracic paraspinal muscles around T4 -T6 ( 2 trigger point injected on the left side ) ANESTHESIA: Local with 1% lidocaine; 5ml for subcutaneous infiltrations and IV versed 2 mg ,and fentanyl 50 mcg EBL: None. PROCEDURE INDICATION: The patient with neuropathic pain radiating distally returns for caudal epidural steroid injection. PROCEDURE DESCRIPTION: The patient was seen and identified in the preoperative area. Risks, benefits, complications, and alternatives were discussed with the patient. The patient agreed to proceed with the procedure and signed the consent. IV was started, and vital signs were stable. Patient was taken to the OR and time out was completed. The patient was placed in the prone position on procedure table and a pillow was placed under the abdomen to reduce lumbar lordosis. The lumbosacral area was prepped and draped in the usual sterile fashion. Critical pause was taken. Vital signs were closely monitored during the procedure. Using lateral fluoroscopy the anterior-posterior plates of the sacrum were identified and the skin and deeper tissues corresponding into sacrococcygeal ligament were anesthetized using approximately 3 mL of 1% lidocaine. Then under fluoroscopy, a 3-1/2-inch 20-gauge Tuohy epidural needle was guided through the sacrococcygeal ligament, and into the epidural space. After negative aspiration, a 2 mL of Isovue 200 contrast dye was injected with excellent epidurogram. Again after negative aspiration for CSF, blood, and with no paresthesias, then Depo-Medrol 60mg, 2ml of 1% preservative free Lidocaine with 6 ml of preservative free normal saline(total of 10ml)solution was injected with washout of epidurogram. Needle was withdrawn intact. Skin was cleansed, and bandage was applied. Then the trigger point which was identified in the preop holding area to the left side thoracic paraspinal muscles around T4 to T6 each one of them injected with ropivacaine 0.5% 2 mL injected at each trigger point using 25-gauge needle , injections done after negative aspiration and there was no paresthesia during the injection , patient tolerated the procedure well without any complications COMPLICATIONS: None DISPOSITION / PLANS: The patient was placed in a supine position and transferred to the recovery area in a stable condition for observation and was discharged from the recovery room after meeting discharge criteria. Home discharge instructions given to the patient by the staff. The patient was reexamined prior to discharge. The patient will schedule a follow up in the clinic in 2-4 weeks.
[2019-07-23 08:39] VITALS: BP 130/86; PULSE 56
[2019-07-23] MEDS ORDERED: IV FLUID CONTINUATION 1,000 ML IV ONE (08:51)
--- NOTE | 2019-07-23 11:52 | FL ---
Fluoroscopy HISTORY: Pain 3 seconds fluoroscopy time supplied to the referring clinician. 2 intraoperative C-arm images docume nt the procedure. See dictated report from anesthesia.
== END 2019-07-23 09:01 | disposition home or self-care (01) ==
LOC: ORPAIN 07:07
PROVIDERS: ATTEND Specialist
DX: G89.29 Other chronic pain (principal); M96.1 Postlaminectomy syndrome, not elsewhere classified; M79.18 Myalgia, other site; M47.816 Spondylosis without myelopathy or radiculopathy, lumbar region; M19.90 Unspecified osteoarthritis, unspecified site; J30.2 Other seasonal allergic rhinitis; H93.13 Tinnitus, bilateral; F17.200 Nicotine dependence, unspecified, uncomplicated; Z87.09 Personal history of other diseases of the respiratory system; Z87.39 Personal history of other diseases of the musculoskeletal system and connective tissue; Z87.19 Personal history of other diseases of the digestive system; Z86.79 Personal history of other diseases of the circulatory system; Z98.890 Other specified postprocedural states; Z98.1 Arthrodesis status; Z91.89 Other specified personal risk factors, not elsewhere classified; Z82.49 Family history of ischemic heart disease and other diseases of the circulatory system; Z80.42 Family history of malignant neoplasm of prostate; Z91.09 Other allergy status, other than to drugs and biological substances; Z91.018 Allergy to other foods
CPT/HCPCS: 20552; 62323; J2250; J1030; J3010; Q9966; J2795; C1894; 99152

== ENCOUNTER 2019-12-23 08:38 | Day surgery (SDC) | payer OTHER ==
[2019-12-19 09:05] VITALS: BMI 17.4
[2019-12-23] MEDS ORDERED: LIDOCAINE 1% (10MG/ML) FOR IV START INTRADERMA ONE (09:05)
[2019-12-23 09:06] VITALS: TEMP 97.3
[2019-12-23 09:06] LABS: Glucose,Whole Blood 95 mg/dL (75-99)
[2019-12-23] MEDS ORDERED: methylPREDNISolone ACETATE 40 MG/ML 1 ML VIAL ONE (09:13)
[2019-12-23] MEDS ORDERED: MIDAZOLAM 2 MG/2 ML VIAL ONE (09:13)
[2019-12-23] MEDS ORDERED: ROPIVACAINE 5MG/ML 20ML VIAL ONE (09:13)
[2019-12-23] MEDS ORDERED: IOPAMIDOL M200 10 ML VIAL ONE (09:13)
[2019-12-23] MEDS ORDERED: fentaNYL (PF) 50 MCG/ML 2 ML AMP ONE (09:13)
--- NOTE | 2019-12-23 09:31 | P.PCN ---
Date of Procedure: 12/23/19 Procedure(s) Performed: PREOPERATIVE DIAGNOSIS: 1-Lumbar post laminectomy syndrome. 2-myofascial pain syndrome thoracic paraspinal muscles. 3-lumbar spondylosis with lumbar facet arthropathy without myelopathy POSTOPERATIVE DIAGNOSIS:same as preop diagnosis . PROCEDURE: 1. Caudal epidural steroid injection under fluoroscopic guidance. (Fluoroscopy images available in the radiology department ) 2. Caudal epidurogram. 3.trigger point injections thoracic paraspinal muscles around T4 -T6 ( 2 trigger point injected on the left side ) ANESTHESIA: Local with 1% lidocaine; 5ml for subcutaneous infiltrations and IV versed 2 mg ,and fentanyl 100 mcg EBL: None. PROCEDURE INDICATION: The patient with neuropathic pain radiating distally returns for caudal epidural steroid injection. PROCEDURE DESCRIPTION: The patient was seen and identified in the preoperative area. Risks, benefits, complications, and alternatives were discussed with the patient. The patient agreed to proceed with the procedure and signed the consent. IV was started, and vital signs were stable. Patient was taken to the OR and time out was completed. The patient was placed in the prone position on procedure table and a pillow was placed under the abdomen to reduce lumbar lordosis. The lumbosacral area was prepped and draped in the usual sterile fashion. Critical pause was taken. Vital signs were closely monitored during the procedure. Using lateral fluoroscopy the anterior-posterior plates of the sacrum were identified and the skin and deeper tissues corresponding into sacrococcygeal ligament were anesthetized using approximately 3 mL of 1% lidocaine. Then under fluoroscopy, a 3-1/2-inch 20-gauge Tuohy epidural needle was guided through the sacrococcygeal ligament, and into the epidural space. After negative aspiration, a 2 mL of Isovue 200 contrast dye was injected with excellent epidurogram. Again after negative aspiration for CSF, blood, and with no paresthesias, then Depo-Medrol 60mg , 2ml of 1% preservative free Lidocaine with 6 ml of preservative free normal saline(total of 10ml)solution was injected with washout of epidurogram. Needle was withdrawn intact. Skin was cleansed, and bandage was applied. Then the trigger point which was identified in the preop holding area to the left side thoracic paraspinal muscles around T4 to T6 each one of them injected with ropivacaine 0.5% 2 mL injected at each trigger point using 25-gauge needle , injections done after negative aspiration and there was no paresthesia during the injection , p atient tolerated the procedure well without any complications COMPLICATIONS: None DISPOSITION / PLANS: The patient was placed in a supine position and transferred to the recovery area in a stable condition for observation and was discharged from the recovery room after meeting discharge criteria. Home discharge instructions given to the patient by the staff. The patient was reexamined prior to discharge. The patient will schedule a follow up in the clinic in 2-4 weeks.
[2019-12-23] MEDS ORDERED: IV FLUID CONTINUATION 1,000 ML IV ONE (09:35)
[2019-12-23 09:38] VITALS: BP 128/67; PULSE 54; RESP 14
--- NOTE | 2019-12-23 10:10 | FL ---
Fluoroscopy HISTORY: Pain 6 seconds fluoroscopy time supplied to the referring clinician. 1 intraoperative C-arm images docume nt the procedure. See dictated report from anesthesia.
== END 2019-12-23 10:05 ==
LOC: ORPAIN 08:38
PROVIDERS: ATTEND Specialist
DX: M79.18 Myalgia, other site (principal); M96.1 Postlaminectomy syndrome, not elsewhere classified; M47.816 Spondylosis without myelopathy or radiculopathy, lumbar region; Z91.018 Allergy to other foods
CPT/HCPCS: 20553; 62323; J2250; J1030; J3010; Q9966; J2795

== ENCOUNTER → 2020-01-21 | Outpatient (CLI) | payer OTHER ==
[2020-01-21 10:49] VITALS: BP 131/78; PULSE 54; RESP 14; TEMP 98.1
--- NOTE | 2020-01-21 10:57 | P.PAINPG ---
Subjective Progress Note Date: 01/21/20 this is a follow-up visit for this 49 years old male, with a chronic history of severe low back pain, and severe upper back pain, he is diagnosed with lumbar spondylosis and lumbar facet arthropathy, and failed back surgery syndrome and lumbar area ,and he had myofascial pain syndrome upper and thoracic area, last year we have done RFA of the medial branch lumbar area L1 , L2 ,L3 , ( to denervate the facet joint at L2-3 and L3 4 ) and he reports his low back pain improved significantly, currently is complaining of severe low back pain which is increased with any activity, the pain is constant severe interfere with the quality of life, he is able to ambulate freely without any difficulty he denies any change in the bowel movement or urination, he denies any fever or night sweats. He continued to use Percocet 10/325 every 6 hours and he denies any side effect of the medication, he is getting prescriptions refilled from his primary care Objective - Vital Signs Vital signs: Vital Signs Temp 98.1 F 01/21/20 10:45 Pulse 54 L 01/21/20 10:45 Resp 14 01/21/20 10:45 BP 131/78 01/21/20 10:45 Pulse Ox 98 01/21/20 10:45 - Exam Physical Examinations : -Constitutiona : Cooperative , not in acute distress . -HEENT : nech : supple , no Lymphadenopathy , normal thyroid size . : eyes : no ptosis , no icterus, no photophobia . - neurologic : Cranial nerve II to XII intact , no focal neurological deffecit . -psychatric : alert , oriented X 3 , appropriate affect , intact judgment and insight . -Lymphatic : no Lymphadenopathy . - musculoskeltal : Lumber spine moter stegnth lower extremities ,thigh and legs 5/5 Right side , 5/5 Left side deep tendon reflexes : normal Knee Jerk , normal ankle Jerk lumber facet Loading Test =positive Right , positive Left Range of motion of the lumbar spine Flexion 30 degrees, extension 10 degrees strait leg raising test = positive at 30 degree Fabere test= positive Right , and positive LT . tenderness over the Sacroiliac joint on the Right , and Left sides Assessment and Plan Plan: Assessment and plan=1-lumbar spondylosis with lumbar facet arthropathy without myelopathy. 2-failed back surgery syndrome , lumbar area he had excellent pain relief after the RFA of the medial branch lumbar area done last year, would be good candidate for repeat RFA of the medial branch lumbar area at L1-L2 and L3 to denervate the facet joint at L2-3 and L3 4, Time with Patient: Less than 30 PQRS Measure Charge Sheet Measure #130: Documentation of Current Meds in Medical Chart: Patient's medications documented in chart Measure #226: Tobacco Use: Screen & Cessation Intervention: Pt screened for tobacco use AND intervention given Measure #111: Pneumonia Vaccination: Pneumococcal vaccine NOT administered or previously given Measure #47: Advance Care Plan: Advance care planning discussed & documented, pt chose/unable to give Measure #412: Opioid Treatment Agreement: No documentation of signed opioid treatment agreement Measure #408: Opioid Therapy Follow-up Evaluation: Patient had NO f/u eval minimum every 3 months during opioid therapy Measure #317: Preventitive Care & Scrn High Bld Press & F/U: Normal blood pressure, f/u not required Measure #128: Body Mass Index (BMI) Screening & Follow-up: BMI documented BELOW normal parameters - f/u documented Measure #131: Pain Assessment & Follow-up: Pain positive & plan documented, Follow-up scheduled Measure #431: Unhealthy Alcohol Use Preventative Care & Scrn: Patient not identified as an unhealthy alcohol user PQRS Narrative: Smoking Status Current every day smoker Blood Pressure 131/78 Pain Intensity [Lower Back] 9 Scale Used Numeric (1 - 10) Hx Alcohol Use (MH) No Home Medications: Ambulatory Orders Baclofen [Lioresal] 20 mg PO TID PRN 09/25/16 oxyCODONE-APAP 10-325MG [Percocet 10-325 mg] 1 tab PO QID PRN 04/27/17 Ibuprofen [Motrin] 800 mg PO DAILY PRN 05/31/17 Ibuprofen/Diphenhydramine HCl [Advil Pm Liqui-Gels] 1 each PO HS PRN 01/14/20 Controlled Substance Measures - Controlled Substance Measures Is patient prescribed a controlled substance at discharge?: No
== END | disposition home or self-care (01) ==
LOC: PNWHC3 10:13
PROVIDERS: ATTEND Specialist
DX: M47.816 Spondylosis without myelopathy or radiculopathy, lumbar region (principal); M46.96 Unspecified inflammatory spondylopathy, lumbar region; M96.1 Postlaminectomy syndrome, not elsewhere classified; F17.200 Nicotine dependence, unspecified, uncomplicated; Z79.891 Long term (current) use of opiate analgesic; Z79.899 Other long term (current) drug therapy
CPT/HCPCS: 99211

== ENCOUNTER 2020-02-10 09:25 | Day surgery (SDC) | payer OTHER ==
[2020-02-09 10:07] VITALS: BMI 17.4
[2020-02-10 09:43] VITALS: TEMP 98.9
[2020-02-10] MEDS ORDERED: MIDAZOLAM 2 MG/2 ML VIAL ONE (10:10)
[2020-02-10] MEDS ORDERED: ROPIVACAINE 5MG/ML 20ML VIAL ONE (10:10)
[2020-02-10] MEDS ORDERED: fentaNYL (PF) 50 MCG/ML 2 ML AMP ONE (10:10)
[2020-02-10] MEDS ORDERED: methylPREDNISolone ACETATE 40 MG/ML 1 ML VIAL ONE (10:10)
--- NOTE | 2020-02-10 10:55 | P.PCN ---
Date of Procedure: 02/10/20 Procedure(s) Performed: PREOPERATIVE DIAGNOSIS: 1-Lumbar Spondylosis with Facet Arthropathy without myelopathy. 2- Lumber degenerative disc disease. 3-failed back surgery syndrome lumbar area POSTOPERATIVE DIAGNOSIS: 1- Lumbar Spondylosis with Facet Arthropathy without myelopathy. 2- Lumber degenerative disc disease. 3-failed back surgery syndrome lumbar area PROCEDURES : Bilateral Radiofrequency thermocoagulation L2 , L3 , L4 medial branch, with fluoroscopic guidance (fluoroscopy images available in the radiology department) ( to denervate the facet joint at L3-4 , L4-5 levels ) ANESTHESIA: Moderate sedation with intravenous versed 4 mg and fentaneyl 100 mcg, and local infiltration with Ropivacaine 0.5 % . EBL: Minimal PROCEDURE INDICATION: The patient with low back pain secondary to lumbar facet arthropathy who had more than 50% relief of her pain with previous diagnostic lumbar medial branch block with bupivacaine. PROCEDURE DESCRIPTION / TECHNIQUE: The patient was seen and identified in the preoperative area. Risks, benefits, complications, including but not limited to risk of infection ,bleeding , allergic reactions to the medications and no complete pain releife , and alternatives were discussed with the patient, the patient agreed to proceed with the procedure and signed the consent. IV was started. Vital signs remained stable throughout the procedure. Patient was taken to the OR and time out was completed. The patient was placed in the prone position on the procedure table. The lumber area was prepped and draped in the usual sterile fashion. . Vital signs were closely monitored during the procedure .IV sedation was used during the procedure to decrease patients anxiety. Using AP and then oblique fluoroscopy, the ``eye of the Jonathan dog corresponding to the connection between the superior and transverse articular processes of right L2 ,L3, L4, were identified, marked, and localized with 1% lidocaine. Subsequently, a 18 -tm radiofrequency cannula with a 10-mm active tip was advanced guided by fluoroscopy to each of the``eyes of the Jonathan dog at right L2 ,L3, L4 . Each site then underwent sensory testing at 50 Hz and 0 to 1 volt and motor testing at 2.5 Hz and 0 to 3 volt with local stimu lation, but no radicular symptoms down the legs. Thereafter each sites underwent radiofrequency thermocoagulation at 80 degrees celsius for 90 seconds after injecting 0.5 ml of PF Ropivacaine 1ml, then after the thermocoagulation done , 1 ml of the block solution containing Depo-Medrol 20 mg and 3 ml of Ropivacaine 0.5% was injected at the right L2 ,L3 , L4 , levels after negative aspiration of CSF and blood and with no paresthesias. Cannulas were retracted while injecting lidocaine 1% until the needle is out. The same procedure was repeated at the level of Left L2 , L3, L4, levels. At the end of the procedure, the skin was cleansed and bandages were applied. COMPLICATIONS: No acute complications. DISPOSITION / PLANS: The patient was placed in a supine position and transferred to the recovery area in a stable condition for observation and was discharged from the recovery room after meeting discharge criteria. Home discharge instructions given to the patient by the staff. The patient was reexamined prior to discharge. The patient will schedule a follow up in the clinic in 2-4 weeks.
[2020-02-10 10:59] VITALS: RESP 16
[2020-02-10] MEDS ORDERED: IV FLUID CONTINUATION 1,000 ML IV ONE (11:00)
--- NOTE | 2020-02-10 11:10 | FL ---
Fluoroscopy HISTORY: Pain 20 seconds fluoroscopy time supplied to the referring clinician. 6 intraoperative C-arm images docum ent the procedure. See dictated report from anesthesia.
[2020-02-10 11:16] VITALS: BP 148/82; PULSE 43
== END 2020-02-10 11:33 | disposition home or self-care (01) ==
LOC: ORPAIN 09:25
PROVIDERS: ATTEND Specialist
DX: M47.816 Spondylosis without myelopathy or radiculopathy, lumbar region (principal); M51.36 Other intervertebral disc degeneration, lumbar region; M96.1 Postlaminectomy syndrome, not elsewhere classified
CPT/HCPCS: 64635; 64636; J2250; J1030; J3010; J2795; 99152; 99153

== ENCOUNTER → 2020-02-23 | Outpatient (CLI) | payer OTHER ==
--- NOTE | 2020-02-23 14:08 | P.PN ---
Subjective Progress Note Date: 02/23/20 This is a 49-year-old gentleman with history of chronic lower back pain status post lumbar and cervical spine surgeries. The patient had lumbar medial branch RFA which has improved his pain significantly in his lower back however he has mid thoracic spine pain with radiation to the anterior chest area to the mid clavicular line bilaterally. The patient denies any numbness or tingling around his chest he also denies any exacerbation of his pain with deep breathing. Upon further questioning the patient mentions some concerning symptoms including significant weight loss more than 20 pounds over the last few months and nocturnal pain in the thoracic area. The patient does have significant and long history of tobacco dependence. The patient uses 4-6 pills of Percocet every day and even with this many pills of Percocet every day his pain is not well controlled. Patient denies new-onset weakness, bowel/bladder incontinence, or any other signs or symptoms of cauda equina syndrome. There are no signs of acute intoxication, and no indications of medication diversion or overuse. In addition to above, 13-point review of systems is also negative for chest pain, shortness of breath, changes in vision, changes in hearing, new onset weakness, abdominal pain, diarrhea, extreme fatigue, malaise, fever, skin changes, homicidal or suicidal ideation, or bowel or bladder incontinence. Vital Signs: Reviewed in EMR Gen: AAOx3, NAD HEENT: PERRLA,hearing grossly normal Pulm: resp unlabored Neck: supple, trachea midline Neuro exam of the upper extremities: Normal muscle strength bilaterally Significant pain with percussion over the thoracic spinous processes around T3,T4 vertebra Neuro: CN II-XII grossly intact, Imaging: Reviewed in EMR/chart Assessment: Failed back and neck surgery Thoracic spondylosis without myelopathy History of tobacco dependence Nocturnal pain in the thoracic area with significant weight loss recently Plan: 1. Explanation: Opioid and psychological risk scores were reviewed. Diagnoses, prognoses, and multiple treatment options including but not limited to physical therapy, interventional therapies, adjuvant medical therapies, narcotic medication therapies, and surgery were discussed with the patient and all questions were answered to the patient's satisfaction. 2. Opioid agreement: Signed with the patient and the patient is warned not to use opioids while driving or before driving and not to combine opioids with benzodiazepines or alcohol. 3. Counseling: The patient was counseled extensively on SMOKING CESSATION, BODY MASS INDEX, EXERCISE. Specifically, the patient was instructed regarding the im portance of smoking cessation, obesity, and exercise in the context of both chronic pain and overall health. 4. Procedures: None 5. Consultations: None 6. Investigations: Computed tomography scan of the thoracic spine with IV contrast to rule out malignancy 7. Medications: The patient uses Percocet on a daily basis for his pain prescribed to him by Dr. Nieto. 8. Disposition: Return to clinic in 4 weeks 9. Maps were reviewed and were appropriate. Objective - Vital Signs Vital signs: Intake & Output 02/22/20 02/23/20 02/23/20 18:59 06:59 18:59 Weight 50.802 kg
== END | disposition home or self-care (01) ==
LOC: PNWHC3 13:22
PROVIDERS: ATTEND Anesthesiology
DX: M96.1 Postlaminectomy syndrome, not elsewhere classified (principal); M47.812 Spondylosis without myelopathy or radiculopathy, cervical region; Z87.891 Personal history of nicotine dependence
CPT/HCPCS: 99211

== ENCOUNTER → 2020-03-29 | Outpatient (CLI) | payer OTHER ==
--- NOTE | 2020-03-29 16:21 | MR ---
EXAMINATION TYPE: MR thoracic spine wo/w con DATE OF EXAM: 03/29/2020 2:04 PM COMPARISON: NONE HISTORY: Thoracic spine pain, Pain in arms, decreased range of motion in arms Multiplanar MultiSpin echo imaging of the thoracic spine was performed. Pre and post contrast enhanc ed images were obtained. 5 mL of fat Gadavist was utilized. Disc spaces: There is mild decreased signal and loss of height with posterior disc bulging noted to e xtend from T6 through T10. Small protrusion is noted at T9-10 paracentrally and to the left. No evide nce for cord contact or central stenosis. No rocael herniation appreciated. Mild ventral spondylosis. Spinal canal: No evidence for canal stenosis. No intrinsic or extrinsic lesion. Thoracic spinal cord: Thoracic spinal cord is of normal caliber and signal. Paraspinal soft tissues: No evidence for paraspinal mass. No destructive lesions seen. Vertebral segments: No evidence for fracture or bony lesion. IMPRESSION: Multilevel degenerative disc disease and disc bulging with small protrusion noted at T9-1 0.
== END | disposition home or self-care (01) ==
LOC: RADMRIMAIN 12:43
PROVIDERS: ATTEND Specialist
DX: M51.24 Other intervertebral disc displacement, thoracic region (principal); M51.34 Other intervertebral disc degeneration, thoracic region
CPT/HCPCS: 72157; A9585

== ENCOUNTER → 2020-03-31 | Outpatient (CLI) | payer OTHER ==
[2020-03-31 11:39] VITALS: BP 135/86; PULSE 60; RESP 16; TEMP 98.1
--- NOTE | 2020-03-31 11:42 | P.PAINPG ---
Subjective Progress Note Date: 03/31/20 Subjective Progress Note Date: 02/23/20 This is a 49-year-old gentleman with history of chronic lower back pain status post lumbar and cervical spine surgeries. He has had lumbar medial branch RFA in the past which helped. In our last visit he was having mid thoracic spine pain with radiation to the anterior chest area to the mid clavicular line bilaterally. We ordered a thoracic MRI for him as well as asked him to talk to his [facility] care provider as he is having significant weight loss. Today he describes pain all the way from the shoulders to his toes that is unremitting and currently an 8 out of 10. The pain is worse is in his mid thoracic area with radiation out to the flank area. Pain is described as sharp and stabbing and constant throughout the day. 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 Currently taking Percocet 10 mg 4-6 times a day as well as baclofen 20 mg at night and he says this is not helping him in any way. Thoracic MRI 03/2020 Mild decreased signal loss of height with posterior disc bulging noted to extend from T6 through T10. Small protrusion noted at T9 to T10 paracentrally into the left. No evidence of stenosis. Thoracic spinal cord is of normal caliber and signal. No evidence for paraspinal mass. Patient denies new-onset weakness, bowel/bladder incontinence, or any other signs or symptoms of cauda equina syndrome. There are no signs of acute intoxication, and no indications of medication diversion or overuse. In addition to above, 13-point review of systems is also negative for chest pain, shortness of breath, changes in vision, changes in hearing, new onset weakness, abdominal pain, diarrhea, extreme fatigue, malaise, fever, skin changes, homicidal or suicidal ideation, or bowel or bladder incontinence. Vital Signs: Reviewed in EMR Gen: AAOx3, NAD HEENT: PERRLA,hearing grossly normal Pulm: resp unlabored Neck: supple, trachea midline Neuro exam of the upper extremities: Normal muscle strength bilaterally Significant pain with percussion over the thoracic spinous processes around T3,T4 vertebra Neuro: CN II-XII grossly intact, Imaging: Reviewed in EMR/chart Assessment: Failed back and neck surgery Thoracic spondylosis without myelopathy History of tobacco dependence Nocturnal pain in the thoracic area with significant weight loss recently Plan: 1. Explanation: Opioid and psychological risk scores were reviewed. Diagnoses, prognoses, and multiple treatment options including but not limited to physical therapy, interventional therapies, adjuvant medical therapies, narcotic medication therapies, and surgery were discussed with the patient and all questions were answered to the patient's satisfaction. 2. Opioid agreement: patient is warned not to use opioids while driving or before driving and not to combine opioids with benzodiazepines or alcohol. We do not prescribe his opioid medications 3. Counseling: The patient was counseled extensively on SMOKING CESSATION, BODY MASS INDEX, EXERCISE. Specifically, the patient was instructed regarding the importance of smoking cessation, obesity, and exercise in the context of both chronic pain and overall health. 4. Procedures: T9-T10 LIDA ordered. I did tell the patient at this disc bulge is quite small and that with his diffuse body pain this epidural may only help focally. Patient understands 5. Consultations: Continue to follow up with PCP regarding weight loss. He told me that his primary care doctor has no concern for malignancy. He is a high protein diet help gain weight now. 6. Investigations: none 7. Medications: The patient uses Percocet on a daily basis for his pain prescribed to him by Dr. Nieto. He does note that his baclofen is not helping either. I did prescribe Cymbalta 30 mg for week 1 and 60 mg for week 2 to help with his generalized body pain which is likely centralized in nature now. I also prescribed Robaxin 750 mg 4 times a day as needed and told him to stop taking his baclofen as this new muscle relaxer might help him more. I did educate in the baclofen does have withdrawal side effects and if he does feel like he is having any symptoms such as nausea, dizziness, jitteriness, to go back on his baclofen and discuss a slower wean with his provider. In the end it is likely that weaning off his Percocet will likely help him more than any medications and I encouraged him to talk to his primary care provider about that as he is likely having an element of opioid-induced hyperalgesia. 8. Disposition: Return to clinic in 8 weeks 9. Maps were reviewed and were appropriate. PQRS Measure Charge Sheet PQRS Narrative: Smoking Status Current every day smoker Hx Alcohol Use (MH) No Home Medications: Ambulatory Orders Baclofen [Lioresal] 20 mg PO TID 09/25/16 oxyCODONE-APAP 10-325MG [Percocet 10-325 mg] 1 tab PO QID PRN 04/27/17 Ibuprofen [Motrin] 800 mg PO DAILY PRN 05/31/17 Ibuprofen/Diphenhydramine HCl [Advil Pm Liqui-Gels] 1 each PO HS PRN 01/14/20 DULoxetine HCL [Cymbalta] 30 mg PO BID 30 Days #60 cap 03/31/20 methocarbamoL [Robaxin] 750 mg PO QID PRN 30 Days #120 tab 03/31/20 Controlled Substance Measures - Controlled Substance Measures Is patient prescribed a controlled substance at discharge?: No
== END | disposition home or self-care (01) ==
LOC: PNWHC3 11:06
PROVIDERS: ATTEND Anesthesiology
DX: M96.1 Postlaminectomy syndrome, not elsewhere classified (principal); M47.814 Spondylosis without myelopathy or radiculopathy, thoracic region; Z87.891 Personal history of nicotine dependence; Z79.899 Other long term (current) drug therapy
CPT/HCPCS: 99211

== ENCOUNTER 2020-04-22 08:58 | Day surgery (SDC) | payer OTHER ==
[2020-04-20 15:48] VITALS: BMI 17.4
[2020-04-22 09:27] VITALS: TEMP 98.2
[2020-04-22] MEDS ORDERED: LIDOCAINE 1% (10MG/ML) FOR IV START INTRADERMA ONE (09:32)
[2020-04-22] MEDS ORDERED: fentaNYL (PF) 50 MCG/ML 2 ML AMP ONE (09:42)
[2020-04-22] MEDS ORDERED: methylPREDNISolone ACETATE 40 MG/ML 1 ML VIAL ONE (09:42)
[2020-04-22] MEDS ORDERED: MIDAZOLAM 2 MG/2 ML VIAL ONE (09:42)
[2020-04-22] MEDS ORDERED: IOPAMIDOL M200 10 ML VIAL ONE (09:42)
--- NOTE | 2020-04-22 09:59 | P.PCN ---
Date of Procedure: 04/22/20 Procedure(s) Performed: PREOPERATIVE DIAGNOSIS: 1- Thoracic Degenerative Disc Diseases 2-Thoracic spondylosis with Facet arthropathy without myelopathy 3-lumbar spondylosis with lumbar facet arthropathy without myelopathy POSTOPERATIVE DIAGNOSIS: Same as preop diagnosis. PROCEDURE 1. thoracic epidural steroid injection under fluoroscopic guidance at the T9-10 level. (Fluoroscopy imaging was available in radiology department) 2. Thoracic epidurogram. ANESTHESIA: Local with 1% lidocaine 3 ml and , moderate sedation with intravenous Versed 2 mg ,and fentanyle 50 Mcg EBL: Minimal PROCEDURE INDICATION: The patient with mid ,and low back pain symptoms unresp onsive to conservative treatment. Fluoroscopy was used to optimize visualization of the needle placement and to maximize safety. PROCEDURE DESCRIPTION / TECHNIQUE: The patient was seen and identified in the preoperative area. Risks, benefits, complications including but not limited to infections ,bleeding ,allergic reaction to the medications ,nerve damage and not complete pain releife , and a lternatives were discussed with the patient. The patient agreed to proceed with the procedure and signed the consent. IV was started, and vital signs were stable. Patient was taken to the OR and time out was completed. The patient was placed in the prone position on procedure table and a pillow was placed under the abdomen to reduce lumbar lordosis. The thoracic area was prepped and draped in the usual sterile fashion.ere closely monitored during the procedure. Conscious sedation was used during the procedure to decrease patients anxiety. Vital signs was monitered during the entire procedure. Using anterior-posterior fluoroscopy, the T9-10 interlaminar space was identified and the skin over this site was marked and then infiltrated with 1% lidocaine subcutaneously. Subsequently, a 20-gauge Tuohy epidural needle was inserted and advanced toward the epidural space using the ``Loss of resistance technique and guided by AP and lateral fluoroscopy. The correct needle position in the epidural space was verified with the injection of 2 mL of the water soluble contrast dye Isovue 200 contrast and observing an excellent epidurogram with the epidural spread of the dye, after negative aspiration for blood and CSF and in the absence of paresthesias. Again after negative aspiration, a 6 ml mixture containing 40 mg of Depo-medrol , and 2 ml of preservative free Normal Saline, and 2 ml of preservative free lidocaine 1% solution was injected and a washout of epidurogram was seen. Needle was withdrawn intact, skin was cleansed, and bandages were applied. COMPLICATIONS: None DISPOSITION / PLANS: The patient was placed in a supine position and transferred to the recovery area in a stable condition for observation. There was no evidence of lower extremity motor or sensory deficit after the procedure. Patient was discharged from the recovery room after meeting discharge criteria. Home discharge instructions were given to the patient by the staff. The patient was reexamined prior to discharge. The patient will schedule a follow up in the clinic in 2-4 weeks.
[2020-04-22] MEDS ORDERED: IV FLUID CONTINUATION 1,000 ML IV ONE (10:03)
[2020-04-22 10:23] VITALS: BP 119/76; PULSE 52; RESP 16
--- NOTE | 2020-04-22 12:34 | FL ---
EXAMINATION TYPE: FL guided pain mgmt statistic DATE OF EXAM: 04/22/2020 HISTORY: Fluoroscopy time 8 seconds of fluoroscopy provided. IMPRESSION: 1. Fluoroscopy time.
== END 2020-04-22 10:33 | disposition home or self-care (01) ==
LOC: ORPAIN 08:58
PROVIDERS: ATTEND Specialist
DX: M51.34 Other intervertebral disc degeneration, thoracic region (principal); M47.814 Spondylosis without myelopathy or radiculopathy, thoracic region; M47.816 Spondylosis without myelopathy or radiculopathy, lumbar region; Z88.8 Allergy status to other drugs, medicaments and biological substances; Z91.018 Allergy to other foods
CPT/HCPCS: 62321; J2250; J1030; J3010; Q9966

== ENCOUNTER 2020-06-01 07:44 | Day surgery (SDC) | payer OTHER ==
[2020-05-27 11:09] VITALS: BMI 17.4
[2020-06-01 08:06] VITALS: TEMP 98.3
[2020-06-01] MEDS ORDERED: LIDOCAINE 1% (10MG/ML) FOR IV START INTRADERMA ONE (08:10)
[2020-06-01] MEDS ORDERED: LACTATED RINGERS 1,000 ML IV ONE (08:15)
[2020-06-01] MEDS ORDERED: MIDAZOLAM 2 MG/2 ML VIAL ONE (08:43)
[2020-06-01] MEDS ORDERED: IOPAMIDOL M200 10 ML VIAL ONE (08:43)
[2020-06-01] MEDS ORDERED: fentaNYL (PF) 50 MCG/ML 2 ML AMP ONE (08:43)
[2020-06-01] MEDS ORDERED: methylPREDNISolone ACETATE 40 MG/ML 1 ML VIAL ONE (08:43)
--- NOTE | 2020-06-01 09:00 | P.PCN ---
Date of Procedure: 06/01/20 Description of Procedure: PREOPERATIVE DIAGNOSIS: 1- Thoracic Degenerative Disc Diseases 2-Thoracic spondylosis with Facet arthropathy without myelopathy 3-lumbar spondylosis with lumbar facet arthropathy without myelopathy POSTOPERATIVE DIAGNOSIS: Same as preop diagnosis. PROCEDURE 1. thoracic epidural steroid injection under fluoroscopic guidance at the T9-10 level. (Fluoroscopy imaging was available in radiology department) 2. Thoracic epidurogram. ANESTHESIA: Local with 1% lidocaine 3 ml and , moderate sedation with intravenous Versed 2 mg ,and fentanyle 100 Mcg EBL: Minimal PROCEDURE INDICATION: The patient with mid ,and low back pain symptoms unresponsive to conservative treatment. Fluoroscopy was used to optimize visualization of the needle placement and to maximize safety. PROCEDURE DESCRIPTION / TECHNIQUE: The patient was seen and identified in the preoperative area. Risks, benefits, complications including but not limited to infections ,bleeding ,allergic reaction to the medications ,nerve damage and not complete pain releife , and alternatives were discussed with the patient. The patient agreed to proceed with the procedure and signed the consent. IV was started, and vital signs were stable. Patient was taken to the OR and time out was completed. The patient was placed in the prone position on procedure table and a pillow was placed under the abdomen to reduce lumbar lordosis. The thoracic area was prepped and draped in the usual sterile fashion.ere closely monitored during the procedure. Conscious sedation was used during the procedure to decrease patients anxiety. Vital signs was monitered during the entire procedure. Using anterior-posterior fluoroscopy, the T9-10 interlaminar space was identified and the skin over this site was marked and then infiltrated with 1% lidocaine subcutaneously. Subsequently, a 20-gauge Tuohy epidural needle was inserted and advanced toward the epidural space using the ``Loss of resistance technique and guided by AP and lateral fluoroscopy. The correct needle position in the epidural space was verified with the injection of 2 mL of the water soluble contrast dye Isovue 200 contrast and observing an excellent epidurogram with the epidural spread of the dye, after negative aspiration for blood and CSF and in the absence of paresthesias. Again after negative aspiration, a 6 ml mixture containing 40 mg of Depo-medrol , and 2 ml of preservative free Normal Saline, and 2 ml of preservative free lidocaine 1% solution was injected and a washout of epidurogram was seen. Needle was withdrawn intact, skin was cleansed, and bandages were applied. COMPLICATIONS: None DISPOSITION / PLANS: The patient was placed in a supine position and transferred to the recovery area in a stable condition for observation. There was no evidence of lower extremity motor or sensory deficit after the procedure. Patient was discharged from the recovery room after meeting discharge criteria. Home discharge instructions were given to the patient by the staff. The patient was reexamined prior to discharge. The patient will schedule a follow up in the clinic in 2-4 weeks.
[2020-06-01] MEDS ORDERED: IV FLUID CONTINUATION 1,000 ML IV ONE (09:02)
[2020-06-01 09:06] VITALS: RESP 18
--- NOTE | 2020-06-01 09:10 | FL ---
EXAMINATION TYPE: FL guided pain mgmt statistic DATE OF EXAM: 06/01/2020 HISTORY: Fluoroscopy time 4 seconds of fluoroscopy provided. IMPRESSION: 1. Fluoroscopy time.
[2020-06-01 09:21] VITALS: BP 127/69; PULSE 67
== END 2020-06-01 09:36 | disposition home or self-care (01) ==
LOC: ORPAIN 07:44
PROVIDERS: ATTEND Anesthesiology
DX: M51.34 Other intervertebral disc degeneration, thoracic region (principal); M47.814 Spondylosis without myelopathy or radiculopathy, thoracic region; M47.816 Spondylosis without myelopathy or radiculopathy, lumbar region; Z88.8 Allergy status to other drugs, medicaments and biological substances; Z79.891 Long term (current) use of opiate analgesic
CPT/HCPCS: 62321; J2250; J1030; J3010; Q9966; 99152

== ENCOUNTER → 2020-06-21 | Outpatient (CLI) | payer OTHER ==
[2020-06-21 12:40] VITALS: BP 144/86; PULSE 67; RESP 18; TEMP 97.7
--- NOTE | 2020-06-21 12:51 | P.PN ---
Subjective Progress Note Date: 06/21/20 This is a 49-year-old gentleman with history of spine pain started in the neck down to the lumbar area . The patient had surgery on the lumbar and cervical spines. For his thoracic pain he received a thoracic epidural steroid injection which helped his pain significantly with more than 75% of pain relief and thoracic area only as he states. He does continue to have increasing lower back pain and numbness in his legs and tingling. The patient was placed on Robaxin and Cymbalta which improved his pain however he wasn't able to sleep for 24 hours after this. Cymbalta alone gave him jitteriness. Thoracic MRI 03/2020 Mild decreased signal loss of height with posterior disc bulging noted to extend from T6 through T10. Small protrusion noted at T9 to T10 paracentrally into the left. No evidence of stenosis. Thoracic spinal cord is of normal caliber and signal. No evidence for paraspinal mass. Patient denies new-onset weakness, bowel/bladder incontinence, or any other signs or symptoms of cauda equina syndrome. There are no signs of acute intoxica tion, and no indications of medication diversion or overuse. In addition to above, 13-point review of systems is also negative for chest pain, shortness of breath, changes in vision, changes in hearing, new onset weakness, abdominal pain, diarrhea, extreme fatigue, malaise, fever, skin changes, homicidal or suicidal ideation, or bowel or bladder incontinence. Vital Signs: Reviewed in EMR Gen: AAOx3, NAD HEENT: PERRLA,hearing grossly normal Pulm: resp unlabored Neck: supple, trachea midline Neuro exam of the upper extremities: Normal muscle strength bilaterally Mild tenderness in the thoracic paravertebral musculature Neuro: CN II-XII grossly intact, Imaging: Reviewed in EMR/chart Assessment: Failed back and neck surgery Myofascial pain Thoracic spondylosis without myelopathy History of tobacco dependence Plan: 1. Explanation: Opioid and psychological risk scores were reviewed. Diagnoses, prognoses, and multiple treatment options including but not limited to physical therapy, interventional therapies, adjuvant medical therapies, narcotic medication therapies, and surgery were discussed with the patient and all questions were answered to the patient's satisfaction. 2. Opioid agreement: patient is warned not to use opioids while driving or before driving and not to combine opioids with benzodiazepines or alcohol. We do not prescribe his opioid medications 3. Counseling: The patient was counseled extensively on SMOKING CESSATION, BODY MASS INDEX, EXERCISE. Specifically, the patient was instructed regarding the importance of smoking cessation, obesity, and exercise in the context of both chronic pain and overall health. 4. Procedures: Schedule for lumbar paravertebral musculature trigger point injection B/L 5. Consultations: Continue to follow up with PCP regarding weight loss. He told me that his primary care doctor has no concern for malignancy. He is a high protein diet help gain weight now. 6. Investigations: none 7. Medications: The patient uses Percocet on a daily basis for his pain prescribed to him by Dr. Nieto. He does note that his baclofen is not helping either. Start desipramine 10 mg at night.D/C Cymbalta and Robaxin 8. Disposition: Return to clinic in 4 weeks 9. Maps were reviewed and were appropriate. Objective - Vital Signs Vital signs: Vital Signs Temp 97.7 F 06/21/20 12:36 Pulse 67 06/21/20 12:36 Resp 18 06/21/20 12:36 BP 144/86 06/21/20 12:36 Pulse Ox 97 06/21/20 12:36
== END | disposition home or self-care (01) ==
LOC: PNWHC3 12:28
PROVIDERS: ATTEND Anesthesiology
DX: M96.1 Postlaminectomy syndrome, not elsewhere classified (principal); M47.814 Spondylosis without myelopathy or radiculopathy, thoracic region; M79.18 Myalgia, other site; Z87.891 Personal history of nicotine dependence; Z79.899 Other long term (current) drug therapy
CPT/HCPCS: 99211

== ENCOUNTER 2020-07-08 09:38 | Day surgery (SDC) | payer OTHER ==
[2020-07-07 11:06] VITALS: BMI 17.4
[2020-07-08 09:55] VITALS: TEMP 52.4
[2020-07-08] MEDS ORDERED: ROPIVACAINE 5MG/ML 20ML VIAL ONE (10:00)
[2020-07-08] MEDS ORDERED: MIDAZOLAM 2 MG/2 ML VIAL ONE (10:00)
[2020-07-08] MEDS ORDERED: methylPREDNISolone ACETATE 40 MG/ML 1 ML VIAL ONE (10:00)
[2020-07-08] MEDS ORDERED: fentaNYL (PF) 50 MCG/ML 2 ML AMP ONE (10:00)
--- NOTE | 2020-07-08 10:10 | P.PCN ---
Date of Procedure: 07/08/20 Description of Procedure: Preoperative Diagnosis: myofascial pain syndrome of the lumbar spine Postoperative diagnosis: Same Anesthesia: Local with IV conscious sedation 1 mg of Versed and 50 lulu grams of fentanyl Surgeon: Renata Millan MD Indications for procedure: This is a 49-year-old patient with myofascial pain and palpable trigger points in lumbar spine muscles . The patient consents for an injection after an explanation of risks including but not limited to bleeding and infection, benefits, and alternatives and the patient has signed a consent form indicating understanding of all of them. Description of procedure: After informed consent was obtained the patient's painful area was sterilely prepped in the usual fashion with ChloraPrep. Lumbar paraspinal, distal trapezius, and latissimus dorsi muscle trigger points were identified via palpation of the XX muscles and marked sterilely. Each trigger point was injected with a 25-gauge one and a half inch needle. At that point a solution consisting of 17 ml of 0.5% ropivacaine with 40mg of depomedrol was distributed evenly over the trigger points with 3 ML's of solution at each trigger point. The patient's vital signs were stable afterwards and the procedure was tolerated well. Patient was discharged home with follow-up instructions.
[2020-07-08] MEDS ORDERED: IV FLUID CONTINUATION 800 ML IV ONE (10:16)
[2020-07-08 10:27] VITALS: RESP 20
[2020-07-08 10:30] VITALS: BP 144/77; PULSE 60
== END 2020-07-08 10:42 | disposition home or self-care (01) ==
LOC: ORPAIN 09:38
PROVIDERS: ATTEND Hospitalist
DX: M79.18 Myalgia, other site (principal)
CPT/HCPCS: 20553; J2250; J1030; J3010; J2795

== ENCOUNTER → 2020-07-26 | Outpatient (CLI) | payer OTHER ==
[2020-07-26 09:51] VITALS: BP 127/86; PULSE 74; RESP 18; TEMP 98.1
--- NOTE | 2020-07-26 10:14 | P.PN ---
Subjective Progress Note Date: 07/26/20 Principal diagnosis: Lumbar back pain, and thoracic back pain Mr. Barker is a 49-year-old pleasant male came to the [facility] pain clinic for follow-up visit. Patient has lumbar postlaminectomy syndrome. Pain is not radiating to his lower extremity but is experiencing pain in his lumbar area, and sacroiliac joint area. He described his pain is aching, throbbing, constant type of pain. He had thoracic intervention procedures helped very well for controlling his thoracic back pain. He also tried multiple interventional procedures with the previous pain clinics. He had caudal epidural steroid injection which was helped only marginal pain relief. He is on desipramine 10 mg daily at bedtime which is helping very well during the nighttime and controlling his pain, and for sleep. Not noticed any side effects with the current pain medications. He rated his back pain at this time 7 out of 10 in severity. Bending turning twisting making his pain worse. Pain medications, and intervention procedures are helping him in relieving his pain. Because of the pain sometimes his activities are decreased. He is not working for lost 5-6 months. 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 Denied any red flag symptoms at this time. Objective - Vital Signs Vital signs: Vital Signs Temp 98.1 F 07/26/20 09:46 Pulse 74 07/26/20 09:46 Resp 18 07/26/20 09:46 BP 127/86 07/26/20 09:46 Pulse Ox 96 07/26/20 09:46 - Exam General: well-developed, well-nourished, no acute distress. HEENT: Normocephalic, atraumatic. Neck: supple, trachea midline CVS: Regular rate and rhythm Pulmonary : Not in labored breathing. Neurologic: No noticeable focal deficits. Psychiatric: Appropriate mood and affect. Musculoskeletal: Upper extremity : Normal strength and range of motion. Lower extremity: Normal strength, decreased range of motion secondary to pain in lumbar area. Lumbar paravertebral tenderness: Positive, and healed lumbar scar. Lumbar facet load test: Positive. Straight leg raising test: Negative. Sacroiliac joint tenderness: Positive. SI joint compression test: Positive. Thigh thrust test: Positive. Darnell's /Marek test: Positive Multiple trigger points positive over lumbar, and thoracic area Assessment and Plan Assessment: #1 lumbar post laminectomy syndrome #2 lumbar spondylosis without myelopathy #3 sacroiliac joint dysfunction #4 myofascial pain syndrome, and chronic pain syndrome Plan: 1. Diagnoses, prognoses, and multiple treatment options including but not limited to physical therapy, interventional therapies, adjunct medical therapies, and surgical options were discussed with the patient and all questions were answered to the patients satisfaction. 2. Treatment plan agreement: Patient was discussed regarding the medication side effects, and complications associated medications. 3. The patient was counseled on importance of regular exercise in controlling chronic pain as well as in terms of overall well-being. Patient counseled regarding the importance of regular exercise, and minimizing the intake of carbohydrates, and process foods which may help in decreasing the inflammation, and helps overall well-being. 4. Consultations: Continue physical therapy exercises at home 5. Investigations: MAPS- appropriate , and urine drug test- not done. 6. Diagnostic studies: None. 7. Interventional procedures: Bilateral sacroiliac joint injection 8. Medications: #1 desipramine 10 mg by mouth daily at bedtime dispense 30 with 1 refill 9. Morphine milligram equivalent (MME) doses: 0 from the pain clinic 10. Durable Medical Equipment (DME) : TENS units. 11. Disposition: Scheduled for follow-up in 4-8 weeks duration. I have spent greater than 24 minutes with this patient. Including but not limited to: [id number] time, on physical examination, electronic medical record review, counseling, and documentation
== END ==
LOC: PNWHC3 09:32
DX: M53.3 Sacrococcygeal disorders, not elsewhere classified (principal); M79.10 Myalgia, unspecified site; G89.29 Other chronic pain; M96.1 Postlaminectomy syndrome, not elsewhere classified; M47.816 Spondylosis without myelopathy or radiculopathy, lumbar region; M89.4 Other hypertrophic osteoarthropathy
CPT/HCPCS: 99211

== ENCOUNTER 2020-08-24 10:13 | Day surgery (SDC) | payer OTHER ==
[2020-08-24 10:35] VITALS: TEMP 97.1
[2020-08-24 10:42] LABS: Glucose,Whole Blood 100 mg/dL (75-99)
[2020-08-24] MEDS ORDERED: LACTATED RINGERS 1,000 ML IV ONE (10:43)
[2020-08-24] MEDS ORDERED: LIDOCAINE 1% (10MG/ML) FOR IV START INTRADERMA ONE (10:43)
[2020-08-24] MEDS ORDERED: fentaNYL (PF) 50 MCG/ML 2 ML AMP ONE (11:14)
[2020-08-24] MEDS ORDERED: MIDAZOLAM 2 MG/2 ML VIAL ONE (11:14)
[2020-08-24] MEDS ORDERED: IOPAMIDOL M200 10 ML VIAL ONE (11:14)
[2020-08-24] MEDS ORDERED: TRIAMCINOLONE ACETONIDE 40 MG/ML 1 ML VIAL ONE (11:14)
[2020-08-24] MEDS ORDERED: LACTATED RINGERS 1,000 ML IV SCH (11:15)
--- NOTE | 2020-08-24 11:30 | P.PCN ---
Date of Procedure: 08/24/20 Description of Procedure: PREOPERATIVE DIAGNOSIS: Sacroiliac joint dysfunction POSTOPERATIVE DIAGNOSIS: Sacroiliac joint dysfunction. PROCEDURES: 1. Bilateral Sacroiliac joint steroid injection 2. Sacroiliac joint arthrogram. SURGEON: Marley Rogers ANESTHESIA: Local and IV sedation : Midazolam 2 mg, and fentanyl 50 g +50 g. EBL: None. Specimen removed: None Fluoroscopic image: saved to electronic medical records. PROCEDURE INDICATIONS: This patient with a history of chronic low back pain, and sacroiliac joint dysfunction. Patient tried conservative therapy. Came here for intervention management. PROCEDURE DESCRIPTION: The patient was seen and identified in the preoperative area. Risks, benefits, complications, and alternatives were discussed with the patient. The patient agreed to proceed with the procedure and signed the consent. IV was started, and vital signs were stable. Patient was taken to the OR and time out was completed. The patient was placed in the prone position on procedure table and a pillow was placed under the abdomen to reduce lumbar lordosis. The lumbosacral area was prepped and draped in the usual sterile fashion. Critical pause was taken. Vital signs were closely monitored during the procedure. For the right side, the fluoroscopic camera was placed in left oblique view and right SI joint lower pole was identified. Skin entry point was infiltrated with 1% lidocaine and 22-gauge 3.5 inch spinal needle was introduced into the inferior one-third of SI joint and after penetrating into the joint arthrogram was done. 0.5 ml of [id number] contrast was injected after negative aspiration for blood, and air and negative for paresthesia. Good spread of the contrast into the SI joint has been seen. Then again after negative aspiration of spinal fluid and blood and negative for neurological symptoms, 3 mL of a solution containing total 2 mL of 1% preservative-free lidocaine mixed with 40 mg of Kenalog was injected. The entire procedure was repeated on the left side as above. Needle was withdrawn intact. Skin was cleansed, and bandages were applied. COMPLICATIONS: None. DISPOSITION / PLANS: The patient was placed in a supine position and transferred to the recovery area in a stable condition for observation and was discharged from the recovery room after meeting discharge criteria. Home discharge instructions given to the patient by the staff. The patient was reexamined prior to discharge. The patient will schedule for follow-up visit with the pain clinic in 4 weeks duration.
[2020-08-24] MEDS ORDERED: IV FLUID CONTINUATION 1,000 ML IV ONE (11:31)
[2020-08-24 11:36] VITALS: RESP 18
[2020-08-24 11:47] VITALS: BP 159/70; PULSE 72
--- NOTE | 2020-08-24 11:57 | FL ---
EXAMINATION TYPE: FL guided pain mgmt statistic DATE OF EXAM: 08/24/2020 HISTORY: Fluoroscopy time 3 seconds of fluoroscopy provided. IMPRESSION: 1. Fluoroscopy time.
== END 2020-08-24 12:05 | disposition home or self-care (01) ==
LOC: ORPAIN 10:13
DX: G89.29 Other chronic pain (principal); M53.3 Sacrococcygeal disorders, not elsewhere classified; Z88.8 Allergy status to other drugs, medicaments and biological substances; Z98.1 Arthrodesis status
CPT/HCPCS: 27096; J2250; J3301; J2001; J3010; Q9966

== ENCOUNTER → 2020-10-13 | Outpatient (CLI) | payer OTHER ==
[2020-10-13 09:04] VITALS: BP 171/106; PULSE 79; RESP 16; TEMP 97.8
--- NOTE | 2020-10-13 09:22 | P.PN ---
Subjective Progress Note Date: 10/13/20 This is a 49-year-old gentleman with history of spine pain starting from his neck down to his lower back. The patient had surgery on the cervical and lumbar spines. Today he is complaining of too much pain in the thoracic spine in between his shoulder blades at what seems to be level TII 3 and T3 for this pain radiates around his chest bilaterally to the front and he is not able to take a deep breath because of this pain. This pain also wakes him up at night and he has lost about 20 pounds of his weight over the last 6-7 months. He did have an MRI on the thoracic spine only about 6 months ago which showed multilevel degenerative disc disease and disc bulging with small protrusion at T9-T10 level .the patient had bilateral sacroiliac joint steroid injection which had helped his pain slightly. He did have thoracic epidural steroid injection previously which helped his pain significantly as he states. The level of injection at that time was at T9-T10. The patient also has pain in his left arm going down to his left hand with numbness and tingling and because of that he has been off work. Patient denies new-onset weakness, bowel/bladder incontinence, or any other signs or symptoms of cauda equina syndrome. There are no signs of acute intoxication, and no indications of medication diversion or overuse. In addition to above, 13-point review of systems is also negative for chest pain, shortness of breath, changes in vision, changes in hearing, new onset weakness, abdominal pain, diarrhea, extreme fatigue, malaise, fever, skin changes, homicidal or suicidal ideation, or bowel or bladder incontinence. Vital Signs: Reviewed in EMR Gen: AAOx3, NAD HEENT: PERRLA,hearing grossly normal Pulm: resp unlabored Neck: supple, trachea midline Neuro exam of the upper extremities: Decreased left deltoid muscle strength to 4 out of 5 and left elbow flexion and extension to 4 out of 5, normal wrist flexion and extension on the left side. Straight leg raising test: Marek's test: Range of motion of the lumbar spine: Facet loading test: Tenderness in the paravertebral musculature: Significant tenderness around the T2-T3 level in the thoracic paravertebral musculature. Significant pain with percussion of the T2 and T3 spinous processes. 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 Plan: 1. Explanation: Opioid and psychological risk scores were reviewed. Diagnoses, prognoses, and multiple treatment options including but not limited to physical therapy, interventional therapies, adjuvant medical therapies, narcotic medication therapies, and surgery were discussed with the patient and all questions were answered to the patient's satisfaction. 2. Opioid agreement: Signed with the patient and the patient is warned not to use opioids while driving or before driving and not to combine opioids with benzodiazepines or alcohol. 3. Counseling: The patient was counseled extensively on SMOKING CESSATION, BODY MASS INDEX, EXERCISE. Specifically, the patient was instructed regarding the importance of smoking cessation, obesity, and exercise in the context of both chronic pain and overall health. 4. Procedures: Scheduled for a thoracic epidural steroid injection at the T2 3 or T3 4 levels under fluoroscopic guidance. The patient's pain today is more consistent with the level of T2 3 and T3 4 and not at the T9 10 level and thus we were going to do this injection and the above-mentioned levels. 5. Consultations: None 6. Investigations: None 7. Medications: None prescribed today. The patient received Percocet 10 mg 4 times a day from his primary care physician. 8. Disposition: Proceed with the above-mentioned procedure as soon as possible. The nocturnal upper thoracic pain with the weight loss is concerning to me and if this pain does not improve would have to repeat the MRI on the thoracic spine with and without contrast. 9. Maps were reviewed and were appropriate. Objective - Vital Signs Vital signs: Vital Signs Temp 97.8 F 10/13/20 09:01 Pulse 79 10/13/20 09:01 Resp 16 10/13/20 09:01 BP 171/106 10/13/20 09:01 Pulse Ox 97 10/13/20 09:01
== END ==
LOC: PNWHC3 08:50
PROVIDERS: ATTEND Anesthesiology
DX: M47.24 Other spondylosis with radiculopathy, thoracic region (principal); G89.18 Other acute postprocedural pain; M96.1 Postlaminectomy syndrome, not elsewhere classified; Z88.8 Allergy status to other drugs, medicaments and biological substances; Z91.048 Other nonmedicinal substance allergy status; Z91.018 Allergy to other foods; F17.200 Nicotine dependence, unspecified, uncomplicated
CPT/HCPCS: 99211

== ENCOUNTER 2020-11-02 08:35 | Day surgery (SDC) | payer OTHER ==
[2020-10-29 16:47] VITALS: BMI 17.0
[2020-11-02 08:56] VITALS: RESP 16; TEMP 97.1
[2020-11-02] MEDS ORDERED: fentaNYL (PF) 50 MCG/ML 2 ML AMP ONE (09:01)
[2020-11-02] MEDS ORDERED: IOPAMIDOL M200 10 ML VIAL ONE (09:01)
[2020-11-02] MEDS ORDERED: MIDAZOLAM 2 MG/2 ML VIAL ONE (09:01)
[2020-11-02] MEDS ORDERED: DEXAMETHASONE SOD PHOSPHATE 10 MG/ML 1 ML VIAL ONE (09:01)
--- NOTE | 2020-11-02 09:20 | P.PCN ---
Date of Procedure: 11/02/20 Surgeon: Ling Cobos Pathology: none sent Condition: stable Disposition: PACU Description of Procedure: PROCEDURE 1. Thoracic epidural steroid injection under fluoroscopic guidance, T2-T3 left paramedian approach. 2. Thoracic epidurogram. : PREOPERATIVE DIAGNOSIS: Thoracic radiculopathy, Thoracic spondylosis without myelopathy POSTOPERATIVE DIAGNOSIS: : Same as above ANESTHESIA: Local anesthesia with 1% lidocaine and IV moderate conscious sedation with Versed and Fentanyl . EBL 0 PROCEDURE INDICATION: The patient with neck pain and radiculopathy unresponsive to conservative treatment consents for procedure. PROCEDURE DESCRIPTION / TECHNIQUE: The patient was seen and identified in the preoperative area. Risks, benefits, complications, including but not limited to infections ,bleeding , allergic reactions to the medications ,and not complete pain relief, and alternatives were discussed with the patient, the patient agreed to proceed with the procedure and signed the consent. Patient was taken to the OR and time out was completed. The patient was placed in the prone position on the procedure table. A pillow was placed under the patients chest to increase the flexion of the cervical spine . The cervical area was prepped and draped in the usual sterile fashion. Vital signs were closely monitored during the procedure. Conscious sedation was used during the procedure to decrease patients anxiety. Using anterior-posterior fluoroscopy, the T2-3 interlaminar space was identified and the skin over this site was marked and then infiltrated with 1% lidocaine subcutaneously. Subsequently, a 20-gauge 3-1/2-inch Tuohy epidural needle was inserted and advanced toward the epidural space by means of loss of resistance to air technique and guided by AP and lateral fluoroscopy. The needle tip contacted the lamina of T3 vertebra first, then it was walked off bone and into the epidural space using the loss of to air and fluoroscopic guidance to identify the epidural space. The correct needle position in the epidural space was verified with the injection of 1 mL of the water soluble contrast dye Isovue and observing an excellent epidurogram with the epidural spread of the dye, after negative aspiration for blood and CSF and in the absence of paresthesias. Again after negative aspiration, a 6 ml mixture containing 20 mg of Decadron and 4 ml of preservative free Normal Saline solution was injected and a washout of epidurogram was seen. Needle was withdrawn intact, skin was cleansed, and bandages were applied. A copy of the needle placement picture was saved to the fluoroscopy machine.
--- NOTE | 2020-11-02 09:32 | FL ---
Fluoroscopy HISTORY: Pain 10 seconds fluoroscopy time supplied to the referring clinician. 1 intraoperative C-arm images docum ent the procedure. See dictated report from anesthesia.
[2020-11-02 09:40] VITALS: BP 138/87; PULSE 60
[2020-11-02] MEDS ORDERED: IV FLUID CONTINUATION 1,000 ML IV ONE (09:42)
== END 2020-11-02 09:58 | disposition home or self-care (01) ==
LOC: ORPAIN 08:35
PROVIDERS: ATTEND Anesthesiology
DX: M47.24 Other spondylosis with radiculopathy, thoracic region (principal); Z88.8 Allergy status to other drugs, medicaments and biological substances
CPT/HCPCS: 62321; J2250; J1100; J2001; J3010; Q9966; 99152

== ENCOUNTER → 2020-11-22 | Outpatient (CLI) | payer OTHER ==
[2020-11-22 09:50] VITALS: BP 163/105; PULSE 67; RESP 18; TEMP 97.9
--- NOTE | 2020-11-22 18:41 | P.PN ---
Subjective Progress Note Date: 11/22/20 this is a follow-up visit for this 49 years old male, with history of severe,and chronic low back pain, and severe upper back pain, he is diagnosed with lumbar spondylosis and lumbar facet arthropathy, and failed back surgery syndrome lumbar area ,and he had myofascial pain syndrome upper and thoracic area, and thoracic degenerative disc disease, recently we have done a thoracic epidural steroid injection at T2 3 levels, and he reported that his upper back pain improved significantly, last year we have done RFA of the medial branch lumbar area L1 , L2 ,L3 , ( to denervate the facet joint at L2-3 and L3 4 ) and he reports his low back pain improved significantly, currently is complaining of severe low back pain which is increased with any activity, the pain is constant severe interfere with the quality of life, he is able to ambulate freely without any difficulty he denies any change in the bowel movement or urination, he denies any fever or night sweats. He continued to use Percocet 10/325 every 6 hours and he denies any side effect of the medication, baclofen 20 mg 3 times a day when necessary he is getting prescriptions refilled from his primary care Physical Examinations : -Constitutiona : Cooperative , not in acute distress . -HEENT : nech : supple , no Lymphadenopathy , normal thyroid size . : eyes : no ptosis , no icterus, no photophobia . - neurologic : Cranial nerve II to XII intact , no focal neurological deffecit . -psychatric : alert , oriented X 3 , appropriate affect , intact judgment and insight . -Lymphatic : no Lymphadenopathy . - musculoskeltal : Lumber spine moter stegnth lower extremities ,thigh and legs 5/5 Right side , 5/5 Left side deep tendon reflexes : normal Knee Jerk , normal ankle Jerk lumber facet Loading Test =positive Right , positive Left Range of motion of the lumbar spine Flexion 30 degrees, extension 10 degrees strait leg raising test = positive at 30 degree Fabere test= positive Right , and positive LT . tenderness over the Sacroiliac joint on the Right , and Left sides Assessment and plan=1-lumbar spondylosis with lumbar facet arthropathy without myelopathy. 2-failed back surgery syndrome , lumbar area he had excellent pain relief after the RFA of the medial branch lumbar area done last year,he would be ,good candidate for repeat RFA of the medial branch lumbar area at L1,L2, L3 to denervate the facet joint at L2-3 and L3 4, - PQRS measures = - Patient's medications are documented in the chart. -Tobacco use is positive , and counseling.Given. -Patient's has not received pneumococcal vaccine. -Advanced care planning discussed, patient not eligible. -Opiate contract not signed. -Pain positive and follow-up visit/procedure is scheduled. -Patient's blood pressure measured [ 163/105 ] , and documented in the record ,and patient will follow up with the primary care. -Patient's weight was measured and body mass index [ ] within normal limits and counseling was done. and patient instructed to follow-up with the primary care physician. -Patient was not identified as an unhealthy alcohol user Time with Patient: Less than 30 Objective - Vital Signs Vital signs: Vital Signs Temp 97.9 F 11/22/20 09:47 Pulse 67 11/22/20 09:47 Resp 18 11/22/20 09:47 BP 163/105 11/22/20 09:47 Pulse Ox 98 11/22/20 09:47
== END ==
LOC: PNWHC3 09:41
PROVIDERS: ATTEND Specialist
DX: M47.816 Spondylosis without myelopathy or radiculopathy, lumbar region (principal); M96.1 Postlaminectomy syndrome, not elsewhere classified; F17.200 Nicotine dependence, unspecified, uncomplicated; Z98.890 Other specified postprocedural states; Z88.8 Allergy status to other drugs, medicaments and biological substances; Z91.09 Other allergy status, other than to drugs and biological substances; Z91.018 Allergy to other foods
CPT/HCPCS: 99211

== ENCOUNTER 2020-12-17 12:30 | Day surgery (SDC) | payer OTHER ==
[2020-12-15 14:45] VITALS: BMI 16.9
[2020-12-17 12:53] VITALS: TEMP 98.7
[2020-12-17] MEDS ORDERED: LIDOCAINE 1% (10MG/ML) FOR IV START INTRADERMA ONE (12:53)
[2020-12-17] MEDS ORDERED: fentaNYL (PF) 50 MCG/ML 2 ML AMP ONE (13:04)
[2020-12-17] MEDS ORDERED: methylPREDNISolone ACETATE 40 MG/ML 1 ML VIAL ONE (13:04)
[2020-12-17] MEDS ORDERED: ROPIVACAINE 5MG/ML 20ML VIAL ONE (13:04)
[2020-12-17] MEDS ORDERED: MIDAZOLAM 2 MG/2 ML VIAL ONE (13:04)
[2020-12-17] MEDS ORDERED: IV FLUID CONTINUATION 1,000 ML IV ONE ×2 (13:47)
--- NOTE | 2020-12-17 13:51 | P.PCN ---
Date of Procedure: 12/17/20 Procedure(s) Performed: PREOPERATIVE DIAGNOSIS:1- Lumbar Spondylosis with lumbar facet arthropathy. 2- Lumbar degenerative disc disease. POSTOPERATIVE DIAGNOSIS: Same as preoperative diagnoses PROCEDURES: Radiofrequency ablation of the L1, L2, L3 medial branches with fluoroscopic guidance [place] for facets (L2 -3, and L3-4) ANESTHESIA: Monitored anesthesia care as per anesthesia department . EBL: Minimal Fluoroscopy was used for the procedure and images were saved in the radiology portion of the chart. PROCEDURE INDICATION: The patient with low back pain secondary to lumbar facet arthropathy who had more than 50% relief of pain with previous lumbar radiofrequency ablation PROCEDURE DESCRIPTION / TECHNIQUE: The patient was seen and identified in the preoperative area. Risks, benefits, complications, including but not limited to risk of infection ,bleeding , allergic reactions to the medications and incomplete pain relief , and alternatives were discussed with the patient, the patient agreed to proceed with the procedure and signed the consent. IV was started. The operative site was marked. Patient was taken to the OR and time out was completed. The patient was placed in the prone position on the procedure table. The lumbar area was prepped and draped in the usual sterile fashion. . Vital signs were closely monitored during the procedure .IV sedation was used during the procedure to decrease patient's anxiety. Using AP and then oblique fluoroscopy, the "eye of the Jonathan dog" at Right L1 ,L2, L3, corresponding to the connection between the superior and transverse articular processes of the Right L1 ,L2, L3, vertebrae were identified, marked, and localized with 1% lidocaine. Subsequently, an 18 guage 100 MM radiofrequency cannula with a 10-mm active tip was advanced guided by fluoroscopy to the identified target at each site. Needle positioning was confirmed on AP, oblique and lateral fluoroscopy. Motor testing at 2.5 Hz was done with paraspinal muscle stimulation only, and no radicular symptoms down the legs. Then 1 mL of 1% lidocaine was injected in each site. Radiofrequency thermocoagulation at 80 degrees celsius for 90 seconds was then performed. Before the needles taken out during ropivacaine 0.5% 3 mL mixed with 20 mg of Depom-medrol ,one ml of the micxture injected at each level ,then the Evans were removed. Then the exact same procedure was repeated for the left side and didn't RFA of the left sideL1, L2 ,L3 medial branches COMPLICATIONS: No acute complications. Comments: Of note, the patient had a prior fusion from L4 -5 , L5-S1and the hardware has been removed since his prior procedure. In the future, he may benefit from lower lumbar medial branch blocks. ( the procedure today was above the level of the fusion ) DISPOSITION / PLANS: The patient was placed in a supine position and transferred to the recovery area in a stable condition for observation and was discharged from the recovery room after meeting discharge criteria. Home discharge instructions given to the patient by the staff. The patient will follow up in clinic in 4 weeks.
--- NOTE | 2020-12-17 13:53 | FL ---
EXAMINATION TYPE: FL guided pain mgmt statistic DATE OF EXAM: 12/17/2020 HISTORY: Fluoroscopy time 32 seconds of fluoroscopy provided. IMPRESSION: 1. Fluoroscopy time.
[2020-12-17 14:08] VITALS: BP 136/75; PULSE 59; RESP 18
== END 2020-12-17 14:17 | disposition home or self-care (01) ==
LOC: ORPAIN 12:30
PROVIDERS: ATTEND Specialist
DX: M47.816 Spondylosis without myelopathy or radiculopathy, lumbar region (principal); M51.36 Other intervertebral disc degeneration, lumbar region
CPT/HCPCS: 64635; 64636; J2250; J1030; J3010; J2795